=== PATIENT | male | born 1945 | race Caucasian/White ===

== ENCOUNTER → 2017-06-15 | Outpatient (CLI) | payer MEDICARE, OTHER ==
[~2017-06-15] MED LIST: LIDOCAINE 1% MDV 20ML VIAL As Ordered ONE
--- NOTE | 2017-06-15 15:46 | REP ---
LEFT BREAST MAMMOGRAM AND ULTRASOUND: Left breast mammogram performed in the MLO and CC projections. There is a clinical history of a retroareolar mass. Mammography shows a spiculated retroareolar mass containing multiple microcalcifications consistent with cancer. Metallic clip is seen in the mass, status post ultrasound guided biopsy. Real-time sonographic evaluation of the left breast was performed prior to the biopsy. There is a solid irregular mass containing microcalcifications in the left retroareolar region measuring 3.7 x 2.1 x 2.7 cm. IMPRESSION: ACR 5 left breast mammogram and ultrasound. Both mammographically and sonographically there is an irregular spiculated solid mass containing microcalcifications, consistent with cancer. Metallic clip is seen in the mass by mammography, status post ultrasound guided biopsy. This mammogram was interpreted with the aid of an FDA-approved computer-aided detection system. The patient states she/he had a clinical breast exam in 06/2017. Signed by Bogdan Winters MD 06/15/2017 05:02 P
--- NOTE | 2017-06-18 18:00 | REP ---
ULTRASOUND-GUIDED LEFT BREAST BIOPSY The procedure was performed under the direct supervision of Dr. Winters. The patient has a history of a solid irregular mass containing microcalcifications in the left retroareolar region measuring 3.7 x 2.1 x 2.7 cm seen on a previous ultrasound performed earlier today. The risks and benefits of the procedure were explained to the patient and informed consent was obtained. The left breast mass was localized using ultrasound guidance. The skin was prepped and draped in a sterile fashion. 1% Xylocaine was used as a local anesthetic. Using ultrasound guidance and 13-gauge suction assisted Mammotome needle was inserted and six core biopsy samples were obtained. A marker clip was placed at the biopsy site. The patient tolerated the procedure well and there were no immediate complications. After the appropriate amount of monitored convalescence the patient was discharged from the department. Reviewed by LEWIS Flores 06/15/2017 04:59 PSigned by Bogdan Winters MD 06/18/2017 05:50 P
== END ==
LOC: M RADPRO 12:03
PROVIDERS: ATTEND Surgery
DX: C50.922 Malignant neoplasm of unspecified site of left male breast (principal); N63.42 Unspecified lump in left breast, subareolar; Z95.1 Presence of aortocoronary bypass graft; Z87.891 Personal history of nicotine dependence; Z79.82 Long term (current) use of aspirin; Z79.899 Other long term (current) drug therapy
CPT/HCPCS: 19083; 76642; 88305; G0206

== ENCOUNTER → 2017-08-08 | Outpatient (REF) | payer MEDICARE, OTHER ==
[2017-08-08 14:11] LABS: INR 1.07; PARTIAL THROMBOPLASTIN TIME 24.6 SECONDS (26.8-37.9)
== END ==
LOC: M LAB REF 13:39
DX: C50.122 Malignant neoplasm of central portion of left male breast (principal); R79.1 Abnormal coagulation profile
CPT/HCPCS: 85610

== ENCOUNTER → 2017-08-14 | Outpatient (CLI) | payer MEDICARE, OTHER | LOC: M PLARAD 11:33 | DX: C79.51 Secondary malignant neoplasm of bone (principal); C50.122 Malignant neoplasm of central portion of left male breast; Z90.12 Acquired absence of left breast and nipple | CPT/HCPCS: 78815 ==

== ENCOUNTER → 2017-08-29 | Outpatient (CLI) | payer MEDICARE, OTHER ==
[~2017-08-29] MED LIST changes: +LIDOCAINE 1% MDV 20ML VIAL As Ordered; -LIDOCAINE 1% MDV 20ML VIAL As Ordered ONE; +LIDOCAINE 2% MDV 20 ML VIAL As Ordered
== END ==
LOC: M RADPRO 09:42
DX: C77.0 Secondary and unspecified malignant neoplasm of lymph nodes of head, face and neck (principal); C50.929 Malignant neoplasm of unspecified site of unspecified male breast; Z86.79 Personal history of other diseases of the circulatory system; Z79.82 Long term (current) use of aspirin; Z79.899 Other long term (current) drug therapy
CPT/HCPCS: 38505

== ENCOUNTER → 2018-01-08 | Outpatient (CLI) | payer MEDICARE, OTHER | LOC: M PLARAD 14:02 | DX: C50.122 Malignant neoplasm of central portion of left male breast (principal); C79.51 Secondary malignant neoplasm of bone | CPT/HCPCS: 78815 ==

== ENCOUNTER → 2019-02-03 | Outpatient (CLI) | payer MEDICARE, OTHER ==
[~2019-02-03] MED LIST changes: +ACAR25TA2 PO; +AMLO5TAB6 PO; +ANOR1AER PO; +ASPI81TA24 PO; +ATEN50TA2 PO; +ATOR40TA75 PO; +CALC1TAB26 PO; +FOLI1TAB11 PO; +FURO40TA2 PO; +GLIP1TAB11 PO; +GLUC1CAP10 PO; -LIDOCAINE 1% MDV 20ML VIAL As Ordered; +LIDOCAINE 1% MDV 20ML VIAL As Ordered ONE; -LIDOCAINE 2% MDV 20 ML VIAL As Ordered; +LORA-753 PO; +LOVE0.8I3 SC; +MAGN400C2 PO; +MULTCAP PO; +NITR0.1S TL; +NITR0.4S14 SL; +OLME20TA2 PO; +OMEP1CAP77 PO; +RANO500T7 PO; +SITA50TAB PO; +TAMO20TA8 PO; +TRIC145T22 PO; +ULTR0.0510 TOP; +VANI1CRE5 EX; +VENTAER INH; +VITMTA PO; +WARF-58 PO; +XARE20TA PO; +XGEVINJ SC; +[UNRECOGNIZED DRUG - CODE] EX
[2019-02-03 15:16] LABS: BASO % 0.1 % (0.0-1.0); EOS # 0.2 10^3/uL (0.0-0.50); EOS % 2.1 % (0.0-3.0); HEMATOCRIT 36.4 % (42.0-52.0); HEMOGLOBIN 11.2 g/dl (13.5-17.5); LYMPH # 0.6 10^3/uL (1.5-4.5); LYMPH % 7.7 % (24.0-44.0); MEAN CORPUSCULAR HEMOGLOBIN 28.9 pg (27.0-33.0); MEAN CORPUSCULAR HGB CONC 30.8 g/dl (32.0-36.5); MEAN CORPUSCULAR VOLUME 93.8 fl (80.0-96.0); MONO # 0.5 10^3/uL (0.0-0.8); MONO % 6.9 % (0.0-5.0); NEUTROPHILS # 5.9 10^3/uL (1.8-7.7); NEUTROPHILS % 82.5 % (36.0-66.0); PLATELET COUNT, AUTOMATED 232 10^3/uL (150-450); RED BLOOD COUNT 3.88 10^6/uL (4.30-6.10); WHITE BLOOD COUNT 7.1 10^3/uL (4.0-10.0)
[2019-02-03 15:22] LABS: INR 1.76; PROTHROMBIN TIME 20.2 SECONDS (11.8-14.0)
[2019-02-03 15:39] LABS: ALBUMIN 2.8 GM/DL (3.2-5.2); BILIRUBIN,TOTAL 3.4 MG/DL (0.2-1.0); CALCIUM LEVEL 8.5 MG/DL (8.8-10.2); CREATININE FOR GFR 2.32 MG/DL (0.70-1.30); GLOMERULAR FILTRATION RATE 29.6 (>42); POTASSIUM SERUM 4.3 MEQ/L (3.5-5.1); TOTAL PROTEIN 6.5 GM/DL (6.4-8.2)
[2019-02-03 18:11] VITALS: BP 127/61
--- NOTE | 2019-02-03 18:58 | REP ---
ULTRASOUND LEFT NECK SOFT-TISSUES: Real-time sonographic evaluation of the left neck soft tissues are performed to evaluate a palpable lump for a possible ultrasound guided biopsy. There are multiple small hypoechoic lymph nodes in this region. The largest measures 11 x 7 x 7 mm. Ultrasound guided biopsy will subsequently be performed. Electronically Signed by Bogdan Winters MD 02/05/2019 08:01 A
--- NOTE | 2019-02-04 20:11 | REP ---
Ultrasound-guided left neck lymph node biopsy This procedure was performed by LEWIS Pierce, under the personal supervision of Dr. Winters. The patient has a history of a palpable abnormality. On an ultrasound done 02/03/2019 a lymph node measuring 11 x 7 mm was visualized in the area the patient palpated. The risks and the benefits of the procedure were explained to the patient and informed consent was obtained both verbally and written. Directly prior to the start of the procedure, a formal time out was completed in the procedure room. The left neck palpable lymph node was localized using ultrasound guidance. The skin was prepped and draped in a sterile fashion. 5 ml of 1% lidocaine was used as a local anesthetic. Using ultrasound guidance 8 fine-needle aspirations were obtained using 25 gauge needles of the left sided lymph node, and sent to the lab for further analysis. The patient tolerated the procedure well and there were no immediate complications. After the appropriate amount of monitored convalescence the patient was discharged from the department. Reviewed by LEWIS Pierce 02/03/2019 04:20 P Electronically Signed by Bogdan Winters MD 02/04/2019 08:02 P
== END ==
LOC: M RAD 13:25
PROVIDERS: ATTEND Internal Medicine Hematology & Oncology
DX: C77.0 Secondary and unspecified malignant neoplasm of lymph nodes of head, face and neck (principal)

== ENCOUNTER 2019-03-03 16:18 | Inpatient (IN) | payer MEDICARE, OTHER ==
[~2019-03-03] VITALS: Ht 180.3 cm; Wt 102.3 kg
[~2019-03-03 16:18] MED LIST changes: -LIDOCAINE 1% MDV 20ML VIAL As Ordered ONE
[2019-03-03 17:01] VITALS: BP 131/68
[2019-03-03] MEDS ORDERED: GLUCOSE 4 GM CHEW TABLET PO PRN (18:30)
[2019-03-03] MEDS ORDERED: DEXTROSE 50% 50 ML SYRINGE IV PRN (18:30)
[2019-03-03] MEDS ORDERED: GLUCAGON FOR INJ 1 MG VIAL (J1610) SC PRN (18:30)
[2019-03-03] MEDS ORDERED: XARE15TA PO (18:53)
[2019-03-03] MEDS ORDERED: OMEP-218 PO (18:53)
[2019-03-03] MEDS ORDERED: PROT40IN4 IV (18:53)
[2019-03-03] MEDS ORDERED: JANU100T PO (18:53)
[2019-03-03] MEDS ORDERED: CEFT1INJ5 IV (18:53)
[2019-03-03] MEDS ORDERED: GLUCTAB6 PO (18:53)
[2019-03-03] MEDS ORDERED: OXYC1TAB23 PO (18:55)
[2019-03-03] MEDS: ACETAMINOPHEN TAB 650MG DOSE (2X325MG) PO PRN (20:13)
[2019-03-03] MEDS: HumaLOG INSULIN (NovoLOG) PER UNIT SC SCH (21:00)
--- NOTE | 2019-03-03 21:11 | HPEPDOC ---
General Date of Admission Mar 03, 2019 at 17:42 Date of Service: Mar 03, 2019 Chief Complaint The patient is a 74-year-old male admitted with a reason for visit of Acute Cholecystitis. Source: Patient, Old records Exam Limitations: No limitations Timing/Duration: Week(s) Severity: Moderate Associated Symptoms: Fever, Vomiting, Other (abdominal pain) History of Present Illness This is a 74-year-old male who actually had onset 4 weeks ago of right-sided abdominal pain. At that time. He did undergo evaluation at an outlying facility and was told that he did have gallstones. Reportedly, arrangements were made for him to have a follow-up HIDA scan. Then today he developed nausea, vomiting and severe abdominal pain. He also had fever today. He denies any changes to his bowel or bladder habits. His appetite apparently has been good; there isn't a particular food that exacerbates his symptoms. Home Medications Scheduled Acarbose (Acarbose) 25 Mg Tab, 25 MG PO BIDWM, (Reported) Amlodipine Besylate (Amlodipine Besylate) 5 Mg Tab, 5 MG PO QHS, (Reported) Aspirin (Aspirin EC) 81 Mg Tab, 81 MG PO DAILY, (Reported) Atenolol (Atenolol) 50 Mg Tab, 50 MG PO QHS, (Reported) Atorvastatin Calcium (Atorvastatin Calcium) 40 Mg Tab, 40 MG PO QHS, (Reported) Calcium Carbonate/Vitamin D3 (Calcium 600-Vit D3 800 Tablet) 1 Tab Tab, 1 TAB PO DAILY, (Reported) Ceftriaxone Sodium (Ceftriaxone) 1 Gm Vial, 1 GM IV ASDIRECTED, (Reported) RECEIVED AT [facility] Denosumab Injection (Xgeva) 120 Mg/1.7 Ml Inj, 120 MG SC QMONTH, (Reported) Fenofibrate Nanocrystallized (Tricor) 145 Mg Tab, 145 MG PO QHS, (Reported) Folic Acid (Folic Acid) 1 Mg Tab, 1 MG PO QPM, (Reported) Glipizide (Glipizide Xl) 10 Mg Tab, 10 MG PO QAM, (Reported) Gluc Martinez/Chondro Martinez A/Vit C/Mn (Glucosamine Chondroitin Tab) 1 Each Tablet, 1 TAB PO DAILY, (Reported) Loratadine (Allergy Relief) 10 Mg Tab, 10 MG PO QPM, (Reported) Magnesium Oxide (Magnesium) 400 Mg Cap, 400 MG PO QPM, (Reported) Multivitamins (Thera M Plus Tablet) 1 Tab Tab, 1 TAB PO DAILY, (Reported) Omeprazole (Omeprazole) 20 Mg Capsule.dr, 20 MG PO QAM, (Reported) Pantoprazole Sodium (Protonix IV) 40 Mg Vial, 40 MG IV ASDIRECTED, (Reported) RECEIVED AT [facility] Rivaroxaban (Xarelto) 15 Mg Tablet, 15 MG PO QPM, (Reported) PATIENT STATES HE IS TAKING 15MG Sitagliptin Phosphate (Januvia) 100 Mg Tablet, 100 MG PO DAILY, (Reported) Tamoxifen Citrate (Tamoxifen Citrate) 20 Mg Tab, 20 MG PO DAILY Umeclidinium Brm/Vilanterol Tr (Anoro Ellipta 62.5-25 Mcg INH) 1 Aer Aer, 1 PUFF PO QAM, (Reported) Scheduled PRN Albuterol Sulfate (Ventolin Hfa) 18 Gm Hfa.aer.ad, 2 PUFF INH Q6H PRN for SHORTNESS OF BREATH, (Reported) Nitroglycerin (Nitroglycerin) 0.4 Mg Sub, 0.4 MG SL NITRO PRN for CHEST PAIN, (Reported) Oxycodone HCl/Acetaminophen (Oxycodone-Acetaminophen 5-325) 1 Each Tablet, 1 TAB PO Q8H PRN for PAIN, (Reported) Allergies Coded Allergies: No Known Allergies (Unverified , 04/19/18) Past Medical History Medical History Patient has a history of stage IV left breast carcinoma, bladder cancer, essential hypertension, [id number] diabetes mellitus, gastroesophageal reflux disease, chronic anemia, COPD, dyslipidemia, recent history of left lower extremity DVT for which he is on chronic anticoagulation, varicose veins, hearing loss. 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 Physical Examination General Exam: Positive: Alert, Mild Distress Eye Exam: Positive: PERRLA, Conjunctiva & lids normal, EOMI; Negative: Sclera icteric, Ptosis, Other Eye Symptoms ENT Exam: Positive: Atraumatic, Mucous membr. moist/pink, Pharynx Normal Neck Exam: Positive: Supple; Negative: JVD, thyromegaly, +2 carotid pulse wo bruit, Lymphadenopathy, Other Chest Exam: Positive: Clear to auscultation, Normal air movement Heart Exam: Positive: Rate Normal Abdomen Exam: Positive: Normal bowel sounds, Tenderness Extremity Exam: Positive: Normal pulses, Other (notable varicose veins that are nontender) Skin Exam: Positive: Nl turgor and temperature, Other skin issue (no jaundice) Neuro Exam: Positive: Normal Speech, Strength at 5/5 X4 ext, Normal Tone, Cranial Nerves 3-12 NL Psych Exam: Positive: Memory Intact, Oriented x 3 Vital Signs Vital Signs Date Time Temp Pulse Resp B/P (MAP) Pulse Ox O2 Delivery O2 Flow Rate FiO2 03/03/19 17:01 99.4 78 18 131/68 (89) 92 Assessment/Plan 1. Cholecystitis. Ultrasound from outlying facility shows cholelithiasis with associated edema and gallbladder wall thickness. There does not appear to be any choledocholithiasis. Surgery service has been consulted. The patient has been made nothing by mouth after midnight in anticipation of surgery sometime tomorrow. He does not require significant analgesia at the moment, but we'll make sure he has antiemetics available. Case has been discussed with surgery service and he has been placed on empiric antibiotics. He did have a mild leukocytosis of 12.4. The Levaquin is 1.7; otherwise liver enzyme studies are normal. 2. Nhb-prrqaoj-veyizkaqh diabetes mellitus. Patient has been placed on sliding scale insulin for acute glucose management. #3. Left lower extremity DVT. Patient has been on anticoagulation with Xarelto. This can be held for surgery as needed. Plan / VTE VTE Prophylaxis Ordered?: Yes (patient is on Xarelto) VTE Exclusion Mechanical Proph: N/A:VTE Prophy Ordered VTE Exclusion Pharmacological: N/A:VTE Prophy Ordered Plan IVF: Initiate Diet: Make NPO Medications: Start Antibiotics Diagnostics: Repeat Labs in AM Anticipated Discharge: Home MONICA KIMBALL MD Mar 03, 2019 21:11
[2019-03-03] MEDS ORDERED: ONDANSETRON 4MG/2ML VIAL (J2405) IV PRN (21:15)
[2019-03-03] MEDS: PIPERACILLIN/TAZOBACTAM SOD 3.375 GM in D5W MINI-BAG PLUS 50 ML IV SCH (21:37)
[2019-03-03 22:30] VITALS: BP 126/63
[2019-03-03 22:33] VITALS: BP 126/63
[2019-03-03] MEDS ORDERED: NS 1,000 ML IV ONE (22:45)
[2019-03-03 22:48] VITALS: BP 136/65
[2019-03-03] MEDS ORDERED: ACETAMINOPHEN 650 MG SUPP PR PRN (23:00)
[2019-03-03 23:05] VITALS: BP 127/65
[2019-03-03 23:11] LABS: BASO % 0.1 % (0.0-1.0); EOS % 0.4 % (0.0-3.0); HEMATOCRIT 37.5 % (42.0-52.0); LYMPH # 0.8 10^3/uL (1.5-5.0); LYMPH % 10.2 % (24.0-44.0); MEAN CORPUSCULAR HEMOGLOBIN 29.7 pg (27.0-33.0); MEAN CORPUSCULAR VOLUME 92.8 fl (80.0-96.0); MONO # 0.6 10^3/uL (0.0-0.8); MONO % 7.6 % (0.0-5.0); NEUTROPHILS # 6.6 10^3/uL (1.5-8.5); NEUTROPHILS % 81.1 % (36.0-66.0); PLATELET COUNT, AUTOMATED 203 10^3/uL (150-450); RED BLOOD COUNT 4.04 10^6/uL (4.30-6.10); WHITE BLOOD COUNT 8.1 10^3/uL (4.0-10.0)
[2019-03-03 23:35] VITALS: BP 123/80
[2019-03-03 23:37] LABS: ALBUMIN 2.8 GM/DL (3.2-5.2); BILIRUBIN,TOTAL 2.7 MG/DL (0.2-1.0); CALCIUM LEVEL 8.5 MG/DL (8.8-10.2); CREATININE FOR GFR 1.93 MG/DL (0.70-1.30); GLOMERULAR FILTRATION RATE 36.6 (>42); POTASSIUM SERUM 4.4 MEQ/L (3.5-5.1); TOTAL PROTEIN 6.9 GM/DL (6.4-8.2)
[2019-03-04] VITALS (12 sets, daily range): BP systolic 112–140; BP diastolic 56–71; O2SAT 96
[2019-03-04] MEDS: NS 1,000 ML IV SCH ×2 (00:01→08:16)
[2019-03-04] MEDS: PIPERACILLIN/TAZOBACTAM SOD 3.375 GM in D5W MINI-BAG PLUS 50 ML IV SCH ×4 (03:21→21:04)
[2019-03-04] MEDS ORDERED: ALBUTEROL 90 MCG/ACT 8GM HFA INHALER INH PRN (06:00)
[2019-03-04 06:58] LABS: HEMATOCRIT 36.9 % (42.0-52.0); HEMOGLOBIN 11.5 g/dl (13.5-17.5); MEAN CORPUSCULAR HEMOGLOBIN 28.9 pg (27.0-33.0); MEAN CORPUSCULAR HGB CONC 31.2 g/dl (32.0-36.5); MEAN CORPUSCULAR VOLUME 92.7 fl (80.0-96.0); PLATELET COUNT, AUTOMATED 184 10^3/uL (150-450); RED BLOOD COUNT 3.98 10^6/uL (4.30-6.10)
[2019-03-04 07:27] LABS: ALBUMIN 2.5 GM/DL (3.2-5.2); BILIRUBIN,TOTAL 2.8 MG/DL (0.2-1.0); CALCIUM LEVEL 8.5 MG/DL (8.8-10.2); CREATININE FOR GFR 1.71 MG/DL (0.70-1.30); GLOMERULAR FILTRATION RATE 42.1 (>42); POTASSIUM SERUM 4.7 MEQ/L (3.5-5.1); TOTAL PROTEIN 6.7 GM/DL (6.4-8.2)
[2019-03-04] MEDS: HumaLOG INSULIN (NovoLOG) PER UNIT SC SCH ×4 (07:30→21:00)
[2019-03-04] MEDS: TIOTROPIUM INHALER/CAPSULE (SPIRIVA) INH SCH (08:16)
[2019-03-04] MEDS: FORMOTEROL FUMARATE 20 MCG/2 ML INHALATION SOLUTION (PERFOROMIST) INH SCH (08:41)
[2019-03-04] MEDS: SYMBICORT 160/4.5MCG INHALER 6GM INH SCH ×2 (09:00→20:08)
[2019-03-04] MEDS ORDERED: ENTER DRUG NAME HERE (PATIENT'S OWN MED) INH SCH (09:00)
[2019-03-04] MEDS: ASPIRIN 81 MG ENTERIC TAB PO SCH (10:01)
--- NOTE | 2019-03-04 14:26 | REP ---
MRCP: MRCP exam is accomplished utilizing multiple heavily T2-weighted sequences in the axial and coronal planes. 3D MIP reconstruction images are performed. The gallbladder is moderately distended and the wall appears mild to moderately thickened. Multiple subcentimeter gallstones are seen in the dependent portion of the gallbladder. There are two filling defects in the proximal cystic duct measuring 2 to 3 mm in diameter compatible with small stones in the proximal cystic duct. There is another filling defect in the distal common bile duct approximately 2 mm in diameter consistent with a small stone in the distal CBD. The common bile duct is not significantly dilated, maximum diameter is 6 mm. There is no pancreatic duct dilatation. There is no significant intrahepatic biliary dilatation. There is mild scattered periportal edema. Very small amount of perihepatic fluid is present. Incidental note is made of small cysts in each kidney. IMPRESSION: Moderately distended gallbladder with diffuse gallbladder wall thickening. Multiple subcentimeter gallstones in the gallbladder. There are two stones seen in the proximal cystic duct measuring 2 to 3 mm in diameter. There is a small stone in the distal common bile duct 2 mm in diameter. There is not significant biliary dilatation. There is a very mild amount of perihepatic fluid. The findings suggest cholecystitis. Electronically Signed by Bogdan Winters MD 03/04/2019 04:57 P
[2019-03-04] MEDS: D5W/0.45% SODIUM CHLORIDE 1,000 ML IV SCH (14:51)
[2019-03-04] MEDS: ACETAMINOPHEN TAB 650MG DOSE (2X325MG) PO PRN ×2 (16:00→22:05)
--- NOTE | 2019-03-04 17:59 | IPNPDOC ---
Text Note Date of Service The patient was seen on 03/04/19. NOTE Mr. Solano is a 74-year-old male admitted with cholecystitis. His right-sided abdominal pain is decreasing but he is still rather uncomfortable. Objective: Patient had a MAXIMUM TEMPERATURE of 101.3, but appears to have defervesced; please see vital signs below Physical exam: HENT: Neck is supple with no adenopathy or thyromegaly, he does not currently exhibit diaphoresis. Cardiovascular: Regular rate and rhythm with a normal S1 and S2, no appreciable murmur. Respiratory: Clear to auscultation. Abdominal: Slight distention, moderately tender but no guarding or rebound, b owel tones are decreased. Extremities: No peripheral edema or lesions. Neuro: No focal neuromotor or sensory deficits ASSESSMENT/PLAN: 1. Cholecystitis. Ultrasound from outlying facility showed cholelithiasis with associated edema and gallbladder wall thickness. Concern had been raised for choledocholithiasis as the patient's bilirubin has increased to 2.8. Case has been discussed with the surgery service and MRCP was obtained. Filling defect is noted to the proximal cystic duct and distal common bile duct without significant dilatation. There is no pancreatic duct dilatation or intrahepatic biliary dilatation. The patient does not need intra-operative ERCP he will proceed with cholecystectomy; this is to be determined by the surgery service whose assistance we appreciate. #2. Chronic kidney disease. The patient does have a history of such. He is followed by a ticket sales agent. Crea tinine is much improved at 1.7 with hydration. 3. Kqa-ojojxym-jzvxskrpk diabetes mellitus. Patient did develop some mild hypoglycemia with holding of his diet for procedures. We have transitioned his IV fluids to include dextrose. VS,Fishbone, I+O VS, Fishbone, I+O Laboratory Tests 03/03/19 22:52 Red Blood Count 4.04 L, Mean Corpuscular Volume 92.8, Mean Corpuscular Hemoglobin 29.7, Mean Corpuscular Hemoglobin Concent 32.0, Red Cell Distribution Width 16.1 H, Neutrophils (%) (Auto) 81.1 H, Lymphocytes (%) (Auto) 10.2 L, Monocytes (%) (Auto) 7.6 H, Eosinophils (%) (Auto) 0.4, Basophils (%) (Auto) 0.1, Neutrophils # (Auto) 6.6, Lymphocytes # (Auto) 0.8 L, Monocytes # (Auto) 0.6, Eosinophils # (Auto) 0.0, Basophils # (Auto) 0.0 03/03/19 23:00 Calcium Level 8.5 L, Aspartate Amino Transf (AST/SGOT) 94 H, Alanine Aminotransferase (ALT/SGPT) 44, Alkaline Phosphatase 48, Total Bilirubin 2.7 H, Total Protein 6.9, Albumin 2.8 L 03/04/19 06:45 Red Blood Count 3.98 L, Mean Corpuscular Volume 92.7, Mean Corpuscular Hemoglobin 28.9, Mean Corpuscular Hemoglobin Concent 31.2 L, Red Cell Distribution Width 16.0 H, Calcium Level 8.5 L, Aspartate Amino Transf (AST/SGOT) 102 H, Alanine Aminotransferase (ALT/SGPT) 50, Alkaline Phosphatase 47, Total Bilirubin 2.8 H, Total Protein 6.7, Albumin 2.5 L Vital Signs Date Time Temp Pulse Resp B/P (MAP) Pulse Ox O2 Delivery O2 Flow Rate FiO2 03/04/19 15:00 2.0 03/04/19 14:00 98.8 76 18 120/56 (77) 96 03/04/19 06:18 Nasal Cannula I&O- Last 24 Hours up to 6 AM 03/04/19 06:00 Intake Total 1999.5 ml Output Total 400 ml Balance 1599.5 ml MONICA KIMBALL MD Mar 04, 2019 17:59
[2019-03-04] MEDS: TAMOXIFEN CITRATE 10 MG TAB PO SCH (18:03)
[2019-03-04] MEDS: FOLIC ACID 1 MG TAB PO SCH (18:03)
[2019-03-04] MEDS: MAGNESIUM OXIDE 400 MG TAB (MAG-OX) PO SCH (18:04)
[2019-03-04] MEDS: FENOFIBRATE 145 MG TAB (TRICOR) PO SCH (21:04)
[2019-03-04] MEDS: amLODIPine 5 MG TAB PO SCH (21:09)
[2019-03-04] MEDS: ATORVASTATIN 20 MG TAB PO SCH (21:09)
[2019-03-04] MEDS: ATENOLOL 50 MG TAB PO SCH (21:09)
[2019-03-05] MEDS: D5W/0.45% SODIUM CHLORIDE 1,000 ML IV SCH ×3 (03:23→21:59)
[2019-03-05] MEDS: PIPERACILLIN/TAZOBACTAM SOD 3.375 GM in D5W MINI-BAG PLUS 50 ML IV SCH ×4 (03:23→21:58)
--- NOTE | 2019-03-05 04:30 | CR.PDOC ---
General Surgery Consultation Date of Consultation 03/04/19 History and Physical CONSULT REPORT FOR: Dr. Herrera (hospitalist service) REASON FOR CONSULTATION: abdominal pain, gallstones HISTORY OF PRESENT ILLNESS: Patient admitted to hospitalist service assisted transfer after presentation at [facility] for acute onset of abd ominal pain, reports a low-grade fever and nausea and vomiting. Apparently had a biliary colic type attacks with right upper quadrant and epigastric discomfort about 4 weeks ago was seen at [facility] was found to have evidence of cholelithiasis on ultrasound subsequently discharged home. He was scheduled to have a HIDA scan for some reason to further evaluate his pain. He has not been evaluated by a surgeon. Yesterday he presented to the [facility] with acute onset of pain. Evaluation there with a CT scan of the abdomen and pelvis now shows gallbladder wall thickening and suspicion for acute cholecystitis in this patient is subsequently transferred to us under the care of the hospitalists. I was asked to consult on the patient with regards to surgical management of the cholecystitis. Review of the laboratory studies done there shows that his bilirubin was elevated to 1.7. A repeat here last night shows that this is gone up. At the time I saw the patient, patient reports improvement of the discomfort though this is not totally resolved yet. He denies any nausea or vomiting. PAST MEDICAL HISTORY: Patient has a history of stage IV left breast carcinoma, bladder cancer, essential hypertension, vnx-uyrwjen-cxumwelaz diabetes mellitus, gastroesophageal reflux disease, chronic anemia, COPD, dyslipidemia, recent history of left lower extremity DVT for which he is on chronic anticoagulation, varicose veins, hearing loss. PAST SURGICAL HISTORY: INCLUDES: [Surgical history includes coronary artery bypass graft surgery, right hip surgery for a slipped epiphysis, appendectomy, tonsillectomy, and then left mastectomy in July 2017]. ALLERGIES: Please see below. HOME MEDICATIONS: Please see below. REVIEW OF SYSTEMS: GENERAL: Patient denies fevers or chills. He reports intermittent pain since initial presentation 30 days ago with a severe attack yesterday. Baseline reports easily feeling short of breath. HEENT: [Denies blurred vision and double vision. Denies ear symptoms. Denies hoarseness]. NECK: Denies any neck pain CARDIOVASCULAR: [Denies chest pain and palpitations]. MUSCULOSKELETAL: [Complains of low back pain]. SKIN: [Denies rash]. Denies jaundice NEUROLOGIC: [Denies headache, stroke and transient ischemic attack]. PSYCHIATRIC: [Denies anxiety and depression]. ENDOCRINE: [Denies thyroid disease]. HEMATOLOGY/ONCOLOGY: [Denies bleeding or clotting disorder]. Patient on Eliquis for history of DVT. Reports less intake was yesterday. HEART: [Denies any chest pains, palpitations, paroxysmal dyspnea, orthopnea]. PULMONARY: Reports easily short of breath. 9 oxygen dependent. GASTROINTESTINAL: See HPI. GENITOURINARY: [Denies dysuria, frequency, hematuria and nocturia]. ENDOCRINE: Patient reports being diabetic, on oral hypoglycemic. INFECTIOUS: [Denies any recent upper respiratory tract infection, UTI, need for use of antibiotics]. NUTRITION: Reports fair to poor appetite. PHYSICAL EXAMINATION: VITALS SIGNS: Please see below. GENERAL APPEARANCE: Patient seen laying flat on bed, mildly uncomfortable though this seems to be more from breathing and back pain and then the abdominal discomfort. SKIN: Warm and dry, no signs of jaundice. HEENT: Normocephalic, dry lips. NECK: [Supple, no thyromegaly. No obvious jugular venous distention]. LUNGS: [Clear to auscultation bilaterally. No wheezing appreciated]. HEART: [No chest wall abnormalities. Regular rate and rhythm with no murmurs appreciated]. ABDOMEN: Abdomen is obese, soft, and mildly distended. Right lower quadrant incision from previous appendectomy. He seems to be tender over the right lower quadrant area, mildly tender over the right upper quadrant area and minimally tender in the epigastric area. He is nontender on the left side of the abdomen. EXTREMITIES: [Extremities have no deformities. No edema identified] ANCILLARIES: . LABORATORY DATA: Please see below. IMAGING STUDIES: CT scan of the abdomen and pelvis. I reviewed the images. The official report is not available. This shows gallbladder wall thickening with diffuse small stones in the dependent portion of the neck the gallbladder. I think it could make up either stone in the cystic duct or common bile duct out of the gallbladder. IMPRESSION AND PLAN: Cholelithiasis with acute cholecystitis. Increased LFTs Metastatic lung cancer COPD Patient has evidence of right upper quadrant pain go away could not understand that is the prominence of the right lower quadrant pain on examination. He does have leukocytosis and evidence for gallbladder wall thickening to suggest acute cholecystitis. Concern is for possibility of choledocholithiasis with rising liver function test most specifically the bilirubin with a primary direct bilirubin as a portion that is increasing. Continue with IV antibiotics. I have asked for an MRCP to further evaluate the bile ducts for presence of the colon bile duct stones. I've explained to the patient that if there is common bile duct stones he may need a separate procedure which is an ERCP to remove the stones that fell from the gallbladder. We'll closely follow the patient and [facility] care with hospitalist service. Continue to hold off on the ant icoagulation while we are determining intervention that the surgical may need and timing of it. Vital Signs Vital Signs Date Time Temp Pulse Resp B/P (MAP) Pulse Ox O2 Delivery O2 Flow Rate FiO2 03/04/19 06:00 97.5 64 20 112/63 (79) 95 1.0 I&Os I&O- Last 24 Hours up to 6 AM 03/04/19 06:00 Intake Total 1350 ml Output Total 400 ml Balance 950 ml Laboratory Data Labs 24H Laboratory Tests 2 03/03/19 22:52: Immature Granulocyte % (Auto) 0.6, White Blood Count 8.1, Red Blood Count 4.04L, Hemoglobin 12.0L, Hematocrit 37.5L, Mean Corpuscular Volume 92.8, Mean Corpuscular Hemoglobin 29.7, Mean Corpuscular Hemoglobin Concent 32.0, Red Cell Distribution Width 16.1H, Platelet Count 203, Neutrophils (%) (Auto) 81.1H, Lymphocytes (%) (Auto) 10.2L, Monocytes (%) (Auto) 7.6H, Eosinophils (%) (Auto) 0.4, Basophils (%) (Auto) 0.1, Neutrophils # (Auto) 6.6, Lymphocytes # (Auto) 0.8L, Monocytes # (Auto) 0.6, Eosinophils # (Auto) 0.0, Basophils # (Auto) 0.0, Nucleated Red Blood Cells % (auto) 0.0 03/03/19 23:00: Anion Gap 7L, Glomerular Filtration Rate 36.6L, Lactic Acid Level 3.6*H, Blood Urea Nitrogen 30H, Creatinine 1.93H, Sodium Level 136, Potassium Level 4.4, Chloride Level 108H, Carbon Dioxide Level 21, Calcium Level 8.5L, Aspartate Amino Transf (AST/SGOT) 94H, Alanine Aminotransferase (ALT/SGPT) 44, Alkaline Phosphatase 48, Total Bilirubin 2.7H, Total Protein 6.9, Albumin 2.8L, Albumin/Globulin Ratio 0.68L 03/04/19 03:27: Lactic Acid Followup at 4 Hours 1.9 CBC/BMP Laboratory Tests 03/03/19 22:52 Red Blood Count 4.04 L, Mean Corpuscular Volume 92.8, Mean Corpuscular Hemoglobin 29.7, Mean Corpuscular Hemoglobin Concent 32.0, Red Cell Distribution Width 16.1 H, Neutrophils (%) (Auto) 81.1 H, Lymphocytes (%) (Auto) 10.2 L, Monocytes (%) (Auto) 7.6 H, Eosinophils (%) (Auto) 0.4, Basophils (%) (Auto) 0.1, Neutrophils # (Auto) 6.6, Lymphocytes # (Auto) 0.8 L, Monocytes # (Auto) 0.6, Eosinophils # (Auto) 0.0, Basophils # (Auto) 0.0 03/03/19 23:00 Calcium Level 8.5 L, Aspartate Amino Transf (AST/SGOT) 94 H, Alanine Aminotransferase (ALT/SGPT) 44, Alkaline Phosphatase 48, Total Bilirubin 2.7 H, Total Protein 6.9, Albumin 2.8 L Microbiology Microbiology 03/03/19 Blood Culture, Received Pending 03/03/19 Blood Culture, Received Pending Home Medications Scheduled Acarbose (Acarbose) 25 Mg Tab, 25 MG PO BIDWM, (Reported) Amlodipine Besylate (Amlodipine Besylate) 5 Mg Tab, 5 MG PO QHS, (Reported) Aspirin (Aspirin EC) 81 Mg Tab, 81 MG PO DAILY, (Reported) Atenolol (Atenolol) 50 Mg Tab, 50 MG PO QHS, (Reported) Atorvastatin Calcium (Atorvastatin Calcium) 40 Mg Tab, 40 MG PO QHS, (Reported) Calcium Carbonate/Vitamin D3 (Calcium 600-Vit D3 800 Tablet) 1 Tab Tab, 1 TAB PO DAILY, (Reported) Ceftriaxone Sodium (Ceftriaxone) 1 Gm Vial, 1 GM IV ASDIRECTED, (Reported) RECEIVED AT [facility] Denosumab Injection (Xgeva) 120 Mg/1.7 Ml Inj, 120 MG SC QMONTH, (Reported) Fenofibrate Nanocrystallized (Tricor) 145 Mg Tab, 145 MG PO QHS, (Reported) Folic Acid (Folic Acid) 1 Mg Tab, 1 MG PO QPM, (Reported) Glipizide (Glipizide Xl) 10 Mg Tab, 10 MG PO QAM, (Reported) Gluc Martinez/Chondro Martinez A/Vit C/Mn (Glucosamine Chondroitin Tab) 1 Each Tablet, 1 TAB PO DAILY, (Reported) Loratadine (Allergy Relief) 10 Mg Tab, 10 MG PO QPM, (Reported) Magnesium Oxide (Magnesium) 400 Mg Cap, 400 MG PO QPM, (Reported) Multivitamins (Thera M Plus Tablet) 1 Tab Tab, 1 TAB PO DAILY, (Reported) Omeprazole (Omeprazole) 20 Mg Capsule.dr, 20 MG PO QAM, (Reported) Pantoprazole Sodium (Protonix IV) 40 Mg Vial, 40 MG IV ASDIRECTED, (Reported) RECEIVED AT [facility] Rivaroxaban (Xarelto) 15 Mg Tablet, 15 MG PO QPM, (Reported) PATIENT STATES HE IS TAKING 15MG Sitagliptin Phosphate (Januvia) 100 Mg Tablet, 100 MG PO DAILY, (Reported) Tamoxifen Citrate (Tamoxifen Citrate) 20 Mg Tab, 20 MG PO DAILY Umeclidinium Brm/Vilanterol Tr (Anoro Ellipta 62.5-25 Mcg INH) 1 Aer Aer, 1 PUFF PO QAM, (Reported) Scheduled PRN Albuterol Sulfate (Ventolin Hfa) 18 Gm Hfa.aer.ad, 2 PUFF INH Q6H PRN for SHORTNESS OF BREATH, (Reported) Nitroglycerin (Nitroglycerin) 0.4 Mg Sub, 0.4 MG SL NITRO PRN for CHEST PAIN, (Reported) Oxycodone HCl/Acetaminophen (Oxycodone-Acetaminophen 5-325) 1 Each Tablet, 1 TAB PO Q8H PRN for PAIN, (Reported) Allergies Coded Allergies: No Known Allergies (Unverified , 04/19/18) YARA MAGALLANES MD Mar 04, 2019 06:19
[2019-03-05] MEDS: ACETAMINOPHEN TAB 650MG DOSE (2X325MG) PO PRN ×2 (05:22→16:30)
[2019-03-05 06:00] VITALS: BP 112/57
[2019-03-05 06:56] LABS: ALBUMIN 2.1 GM/DL (3.2-5.2); BILIRUBIN,TOTAL 1.4 MG/DL (0.2-1.0); CALCIUM LEVEL 7.9 MG/DL (8.8-10.2); CREATININE FOR GFR 1.45 MG/DL (0.70-1.30); GLOMERULAR FILTRATION RATE 50.9 (>42); POTASSIUM SERUM 3.9 MEQ/L (3.5-5.1)
[2019-03-05] MEDS: HumaLOG INSULIN (NovoLOG) PER UNIT SC SCH ×4 (07:30→21:00)
[2019-03-05] MEDS: SYMBICORT 160/4.5MCG INHALER 6GM INH SCH ×2 (07:47→20:27)
[2019-03-05] MEDS: TIOTROPIUM INHALER/CAPSULE (SPIRIVA) INH SCH (07:47)
[2019-03-05] MEDS: FORMOTEROL FUMARATE 20 MCG/2 ML INHALATION SOLUTION (PERFOROMIST) INH SCH (07:47)
--- NOTE | 2019-03-05 08:32 | IPNPDOC ---
Subjective General Date/Time Seen The patient was seen on 03/05/19 at 08:31. Subject Chief Complaint/History The patient is a 74-year-old male admitted with a reason for visit of Acute Cholecystitis. Current Medications Current Medications Current Medications Medications (Trade) Dose Ordered Sig/Giovanni Route PRN Reason Start Time Stop Time Status Last Admin Dose Admin Acetaminophen (Tylenol Suppository) 650 mg Q4HP PRN TX PAIN / FEVER 03/03/19 23:00 03/03/19 22:52 Acetaminophen (Tylenol Tab) 650 mg Q6H PRN PO PAIN OR FEVER 03/03/19 18:30 Future hold 03/05/19 05:22 Albuterol Sulfate (Proventil, Ventolin Hfa) 2 puff Q6H PRN INH SHORTNESS OF BREATH 03/04/19 06:00 03/04/19 06:16 Amlodipine Besylate (Norvasc) 5 mg QHS PO 03/04/19 21:00 03/04/19 21:09 Aspirin (Ecotrin) 81 mg DAILY PO 03/04/19 09:00 03/04/19 10:01 Atenolol (Tenormin) 50 mg QHS PO 03/04/19 21:00 03/04/19 21:09 Atorvastatin Calcium (Lipitor) 40 mg QHS PO 03/04/19 21:00 03/04/19 21:09 Budesonide/ Formoterol Fumarate (Symbicort 160/ 4.5mcg) 2 puff BID INH 03/04/19 09:00 03/05/19 07:47 Dextrose (Dextrose 50%) 25 ml ASDIRECTED PRN IV SEE LABEL COMMENTS 03/03/19 18:30 03/04/19 11:56 Dextrose/Sodium Chloride 1,000 ml @ 75 mls/hr [id number] IV 03/04/19 12:30 03/05/19 03:23 Fenofibrate (Tricor) 145 mg QHS PO 03/04/19 21:00 03/04/19 21:04 Folic Acid (Folic Acid) 1 mg DAILY@1800 PO 03/04/19 18:00 03/04/19 18:03 Formoterol Fumarate (Perforomist) 20 mcg DAILY@0800 INH 03/04/19 08:00 03/05/19 07:47 Glucagon (Glucagon) 1 mg ASDIRECTED PRN SC SEE LABEL COMMENTS 03/03/19 18:30 Glucose (Glucose) 16 GM ASDIRECTED PRN PO SEE LABEL COMMENTS 03/03/19 18:30 Home Med (Med Rec Complete!) ASDIRECTED XX 03/03/19 19:00 03/03/19 19:01 DC Insulin Human Lispro (HumaLOG INSULIN) See Protocol Table AC SC 03/04/19 07:30 Insulin Human Lispro (HumaLOG INSULIN) See Protocol Table QHS SC 03/03/19 21:00 Magnesium Oxide (Mag-Ox) 400 mg DAILY@1800 PO 03/04/19 18:00 03/04/19 18:04 Miscellaneous (Unresolved Patient Own Med Order) SEE LABEL COMMENTS DAILY XX 03/04/19 09:00 03/04/19 11:34 DC Ondansetron HCl (ZOFRAN INJection) 4 mg Q6HP PRN IV NAUSEA OR VOMITING 03/03/19 21:15 Patient Own Medication (Patient'S Own Med) ENTER DRUG NAME & DOSE H... QAM INH 03/04/19 09:00 03/04/19 11:21 DC Piperacillin Sod/ Tazobactam Sod 3.375 gm/Dextrose 50 ml @ 50 mls/hr Q6H IV 03/03/19 21:00 03/05/19 03:23 Sodium Chloride 1,000 ml @ 125 mls/hr Q8H IV 03/03/19 21:15 03/04/19 12:43 DC 03/04/19 08:16 Tamoxifen Citrate (Nolvadex) 20 mg DAILY@1800 PO 03/04/19 18:00 03/04/19 18:03 Tiotropium [place] (Spiriva Handihaler) 1 inhalation DAILY@08 INH 03/04/19 08:00 03/05/19 07:47 Allergies Coded Allergies: No Known Allergies (Unverified , 04/19/18) Objective Physical Examination Examination GENERAL APPEARANCE:[Patient seen, laying in bed, awake, alert, and oriented. Comfortable, in no acute distress]. SKIN: [Warm and moist]. HEENT: [Normocephalic, atraumatic. [place] palpebral conjunctiva, anicteric sclerae. Lips and mucosa appear moist]. NECK: [Supple, no thyromegaly. No obvious jugular venous distention]. LUNGS: [Clear to auscultation bilaterally. No wheezing appreciated]. HEART: [No chest wall abnormalities. Regular rate and rhythm with no murmurs appreciated]. ABDOMEN: Abdomen is , soft, . [No hepatosplenomegaly. No umbilical or groin herniations, nondistended. No noticeable rebound or guarding. No grimacing with palpation. No rebound tenderness. No masses appreciated]. EXTREMITIES: [Extremities have no deformities. No edema identified]. Vital Signs Vital Signs Date Time Temp Pulse Resp B/P (MAP) Pulse Ox O2 Delivery O2 Flow Rate FiO2 03/05/19 06:00 97.9 62 22 112/57 (75) 93 03/04/19 17:30 1.0 03/04/19 06:18 Nasal Cannula I&Os I&O- Last 24 Hours up to 6 AM 03/05/19 06:00 Intake Total 3445 ml Output Total 1165 ml Balance 2280 ml Laboratory Data Labs 24H Laboratory Tests 2 03/04/19 12:45: Bedside Glucose (Misc Panel) 105 03/05/19 05:58: Anion Gap 7L, Glomerular Filtration Rate 50.9, Blood Urea Nitrogen 23H, Creatinine 1.45H, Sodium Level 140, Potassium Level 3.9, Chloride Level 111H, Carbon Dioxide Level 22, Calcium Level 7.9L, Aspartate Amino Transf (AST/SGOT) 121H, Alanine Aminotransferase (ALT/SGPT) 58, Alkaline Phosphatase 56, Total Bilirubin 1.4H, Total Protein 6.0L, Albumin 2.1L, Albumin/Globulin Ratio 0.54L CBC/BMP Laboratory Tests 03/05/19 05:58 Calcium Level 7.9 L, Aspartate Amino Transf (AST/SGOT) 121 H, Alanine Aminotr ansferase (ALT/SGPT) 58, Alkaline Phosphatase 56, Total Bilirubin 1.4 H, Total Protein 6.0 L, Albumin 2.1 L Microbiology Microbiology 03/03/19 Blood Culture - Preliminary, Resulted No growth after 24 hours . All specim... 03/03/19 Blood Culture - Preliminary, Resulted No growth after 24 hours . All specim... Impression Cholelithiasis with acute cholecystitis. Increased LFTs secondary to choledocholithiasis improving Metastatic lung cancer COPD Plan / VTE VTE Prophylaxis Ordered?: Yes (patient is on Xarelto) VTE Exclusion Mechanical Proph: N/A:VTE Prophy Ordered VTE Exclusion Pharmacological: N/A:VTE Prophy Ordered YARA MAGALLANES MD Mar 05, 2019 08:32
[2019-03-05 08:33] VITALS: BP 120/60
[2019-03-05] MEDS: ASPIRIN 81 MG ENTERIC TAB PO SCH (09:55)
[2019-03-05 14:00] VITALS: BP_SYST 120; BP_SYST 138; BP_DIAS 54; BP_DIAS 72
--- NOTE | 2019-03-05 17:27 | IPNPDOC ---
Text Note Date of Service The patient was seen on 03/05/19. NOTE Mr. Solano is a 74-year-old male admitted with acute cholecystitis. There are concerns for choledocholithiasis as well. The patient has been uncomfortable with abdominal pain. Objective: See vital signs below Physical exam: HENT: Neck is supple with no adenopathy or thyromegaly, he does not currently exhibit diaphoresis, no scleral icterus or jaundice Cardiovascular: Regular rate and rhythm with a normal S1 and S2, no appreciable murmur. Respiratory: Clear to auscultation. Abdominal: Slight distention, moderately tender primarily to the right side but no guarding or rebound, bowel tones are decreased. Extremities: No peripheral edema or lesions. Neuro: No focal neuromotor or sensory deficits ASSESSMENT/PLAN: 1. Cholecystitis. Patient underwent evaluation by MRCP yesterday. This shows some filling defect in the proximal cystic duct and distal common bile duct, raising concern for choledocholithiasis. Patient is expectant of going to the OR tomorrow for ERCP and subsequent cholecystectomy. The patient admits to having decreased tolerance for his pain and I have made morphine available. 2. Chronic kidney disease Patient has a history of chronic kidney disease. We continue to monitor his creatinine; it is 1.45 today. 3. Lmo-stokilj-zeatafztx diabetes mellitus. The patient is being maintained on sliding scale insulin. He is also on IV fluids containing dextrose. Sugars are ranging 92-119. 4. Cancer. The patient has a history of stage IV breast cancer and bladder cancer. He has undergone surgery and treatment of these. These are not of acute concern during this hospital stay. VS,Fishbone, I+O VS, Fishbone, I+O Laboratory Tests 03/05/19 05:58 Calcium Level 7.9 L, Aspartate Amino Transf (AST/SGOT) 121 H, Alanine Aminotransferase (ALT/SGPT) 58, Alkaline Phosphatase 56, Total Bilirubin 1.4 H, Total Protein 6.0 L, Albumin 2.1 L Vital Signs Date Time Temp Pulse Resp B/P (MAP) Pulse Ox O2 Delivery O2 Flow Rate FiO2 03/05/19 14:00 100.1 90 24 138/72 (94) 95 03/04/19 17:30 1.0 03/04/19 06:18 Nasal Cannula I&O- Last 24 Hours up to 6 AM 03/05/19 06:00 Intake Total 3445 ml Output Total 1165 ml Balance 2280 ml MONICA KIMBALL MD Mar 05, 2019 17:27
[2019-03-05] MEDS: TAMOXIFEN CITRATE 10 MG TAB PO SCH (17:53)
[2019-03-05] MEDS: MAGNESIUM OXIDE 400 MG TAB (MAG-OX) PO SCH (17:53)
[2019-03-05] MEDS: FOLIC ACID 1 MG TAB PO SCH (17:53)
[2019-03-05] MEDS: FENOFIBRATE 145 MG TAB (TRICOR) PO SCH (21:58)
[2019-03-05] MEDS: ATORVASTATIN 20 MG TAB PO SCH (21:59)
[2019-03-05] MEDS: amLODIPine 5 MG TAB PO SCH (21:59)
[2019-03-05] MEDS: ATENOLOL 50 MG TAB PO SCH (21:59)
[2019-03-05 22:00] VITALS: BP 116/59
[2019-03-06] VITALS (8 sets, daily range): BP systolic 127–146; BP diastolic 63–92
[2019-03-06] MEDS: PIPERACILLIN/TAZOBACTAM SOD 3.375 GM in D5W MINI-BAG PLUS 50 ML IV SCH ×4 (02:58→21:29)
[2019-03-06 06:44] LABS: ALBUMIN 2.1 GM/DL (3.2-5.2); BILIRUBIN,TOTAL 1.6 MG/DL (0.2-1.0); CALCIUM LEVEL 7.6 MG/DL (8.8-10.2); CREATININE FOR GFR 1.41 MG/DL (0.70-1.30); GLOMERULAR FILTRATION RATE 52.6 (>42); POTASSIUM SERUM 3.8 MEQ/L (3.5-5.1); TOTAL PROTEIN 5.8 GM/DL (6.4-8.2)
[2019-03-06] MEDS: FORMOTEROL FUMARATE 20 MCG/2 ML INHALATION SOLUTION (PERFOROMIST) INH SCH (07:17)
[2019-03-06] MEDS: TIOTROPIUM INHALER/CAPSULE (SPIRIVA) INH SCH (07:17)
[2019-03-06] MEDS: SYMBICORT 160/4.5MCG INHALER 6GM INH SCH ×2 (07:17→20:17)
[2019-03-06] MEDS: HumaLOG INSULIN (NovoLOG) PER UNIT SC SCH ×4 (07:30→21:00)
[2019-03-06] MEDS: ASPIRIN 81 MG ENTERIC TAB PO SCH (08:32)
[2019-03-06] MEDS: MORPHINE 4 MG/ML 1ML VIAL/SYRINGE (J2270) IV PRN (08:47)
[2019-03-06] MEDS ORDERED: BUPIVACAINE HCL 0.25% 30 ML VIAL As Ordered ONE (11:18)
[2019-03-06] MEDS ORDERED: CONRAY-60 60% 50ML VIAL (Q9961) As Ordered ONE (11:18)
[2019-03-06] MEDS ORDERED: LIDOCAINE 1% SDV INJ 30 ML VIAL As Ordered ONE (11:18)
[2019-03-06] MEDS ORDERED: ROCURONIUM BROMIDE 50 MG/5 ML VIAL As Ordered ONE ×2 (11:45→12:09)
[2019-03-06] MEDS ORDERED: LIDOCAINE 2% INJ 100 MG/5 ML SDV (FOR ANES.) As Ordered ONE (11:45)
[2019-03-06] MEDS ORDERED: fentaNYL 250 MCG/5 ML INJECTION (J3010) As Ordered ONE (11:45)
[2019-03-06] MEDS ORDERED: MIDAZOLAM INJ 2 MG/2 ML VIAL (J2250) As Ordered ONE (11:45)
[2019-03-06] MEDS ORDERED: PROPOFOL 200 MG/20 ML VIAL As Ordered ONE (11:45)
--- NOTE | 2019-03-06 11:56 | IPNPDOC ---
Text Note Date of Service The patient was seen on 03/06/19. NOTE Patient seen at the preoperative holding area for laparoscopic cholecystectomy today. He reports no nausea. He says he is feeling better than the past 2 days though there still is some discomfort over the right upper quadrant, right lower quadrant area. Review of his labs shows the bilirubin still mildly elevated at 1.6 (total bilirubin). Yesterday this is 1.4. I reviewed with him the risks and benefits of going forward with cholecystectomy. I anticipate that the gallbladder will be inflamed which may explain some of the rise in bilirubin. We'll also plan to do an intraoperative cholangiogram to figure out whether the previously seen tiny 2 mm distal: Bile duct stone this past. If we are successful in doing the cholangiogram and there is still a stone he may need other procedures such as an ERCP. Patient voices understanding and has consented to the surgery. VS,Fishbone, I+O VS, Fishbone, I+O Laboratory Tests 03/06/19 05:55 Calcium Level 7.6 L, Aspartate Amino Transf (AST/SGOT) 178 H, Alanine Aminotransferase (ALT/SGPT) 79 H, Alkaline Phosphatase 89, Total Bilirubin 1.6 H, Total Protein 5.8 L, Albumin 2.1 L Vital Signs Date Time Temp Pulse Resp B/P (MAP) Pulse Ox O2 Delivery O2 Flow Rate FiO2 03/06/19 09:00 19 03/06/19 06:00 97.8 60 134/69 (90) 92 03/04/19 17:30 1.0 03/04/19 06:18 Nasal Cannula I&O- Last 24 Hours up to 6 AM 03/06/19 06:00 Intake Total 1970 ml Output Total 950 ml Balance 1020 ml YARA MAGALLANES MD Mar 06, 2019 11:56
[2019-03-06] MEDS ORDERED: dexameTHASONE 4 MG/ML 1ML VIAL (J1100) As Ordered ONE (12:09)
[2019-03-06] MEDS ORDERED: METOCLOPRAMIDE INJ 10MG/2ML VIAL (J2765) As Ordered ONE (12:24)
[2019-03-06] MEDS ORDERED: ONDANSETRON 4MG/2ML VIAL (J2405) As Ordered ONE (12:24)
[2019-03-06] MEDS ORDERED: KETOROLAC 60 MG/2 ML VIAL (J1885) As Ordered ONE (12:24)
[2019-03-06] MEDS ORDERED: ACETAMINOPHEN 1000MG 100ML IV BTL (OFIRMEV) (J0131 PER 10MG) As Ordered ONE (12:25)
[2019-03-06] MEDS ORDERED: SUGAMMADEX SODIUM 500 MG/5 ML VIAL (BRIDION) As Ordered ONE (12:25)
[2019-03-06] MEDS ORDERED: GLUCAGON FOR INJ 1 MG VIAL (J1610) As Ordered ONE (13:24)
--- NOTE | 2019-03-06 15:12 | POST-OPPD ---
Postoperative Procedure Note Date Of Procedure: Mar 06, 2019 PREOPERATIVE DIAGNOSIS: Acute Cholecystitis, abnormal LFTs POSTOPERATIVE DIAGNOSIS: same FINDINGS: Inflamed gallbladder with thick gallbladder wall, dirty appearing bile, multiple small black stones (spillage and retrieved). I attempted to do a cholangiogram but catheter kepts getting extruded with balloon inflated and trying to inject saline/dye. When I clipped the catheter, It was hard to inject and was leaking out of the cystotomy. Cant be sure if there is a distal stone/obstruction. Have to monitor lfts postop and if still elevated may need repeat MRCP/ERCP. PROCEDURE: Laparoscopic Cholecystectomy SURGEON: Guille Cain MD DISH TECHNICIAN: ANESTHESIA: General Anesthesia SPECIMENS: gallbladder ESTIMATED BLOOD LOSS: 50 mL DRAINS: 19 [place] Drain COMPLICATIONS: none, extubated POSTOPERATIVE CONDITION: stable, extubated GUILLE CAIN MD Mar 06, 2019 15:12
--- NOTE | 2019-03-06 15:13 | ROOPDOC ---
[facility] Report Of Operation Report of Operation DATE OF PROCEDURE: 03/06/19 PREOPERATIVE DIAGNOSIS: Acute Cholecystitis, abnormal LFTs POSTOPERATIVE DIAGNOSIS: same FINDINGS: Inflamed gallbladder with thick gallbladder wall, dirty appearing bile, multiple small black stones (spillage and retrieved). I attempted to do a cholangiogram but catheter kepts getting extruded with balloon inflated and trying to inject saline/dye. When I clipped the catheter, It was hard to inject and was leaking out of the cystotomy. Cant be sure if there is a distal stone/obstruction. Have to monitor lfts postop and if still elevated may need repeat MRCP/ERCP. PROCEDURE: Laparoscopic Cholecystectomy SURGEON: Guille Cain MD MANAGER PUBLISHING: ANESTHESIA: General Anesthesia SPECIMENS: gallbladder ESTIMATED BLOOD LOSS: 50 mL DRAINS: 19 [place] Drain COMPLICATIONS: none, extubated POSTOPERATIVE CONDITION: stable, extubated DESCRIPTION OF PROCEDURE: Patient is receiving zosyn 3.375 gm iv q6h for acute cholecystitis. He was brought to the operating room, laid supine on the table, compression boots placed for DVT prophylaxis. General endotracheal anesthesia started. His abdomen then prepped and draped in usual sterile fashion. Surgical timeout was performed prior to confirm right procedure, right patient identification and other necessary information prior to starting surgery. Entry into the abdomen done through an incision a few centimeters above the umbilical cleft. A Veress needle was inserted with a controlled fashion. CO2 insufflation started to pressure 15 mmHg. Using the same incision a 5 mm Visiport was placed under direct vision laparoscope. The area underneath the insertion site was inspected and no injury found. He was then placed in steep reverse Trendelenburg. His right side was tilted up to further expose the gallbladder. Under direct vision a 11 mm epigastric port and Two 5 mm working ports placed along the right subcostal line. Operative findings: On diagnostic laparoscopy, he has some slight rough textured liver with scattered small nodularities (early cirrhosis), small cysts. There is a small amount of perihepatic ascites (100mLs). The omentum is plastered to the lower portion of the right lobe of the liver from inflammatory adhesions from the cholecystitis. After dividing and retracting the omentum, a thickened acutely inflamed gallbladder which is tensely distended is noted. No obvious necrosis of the wall or perforation is noted, pericholecystic fluid. Findings are consistent with severe acute cholecystitis. An aspirating needle was used to decompress the gallbladder at the fundus. Dark colored nonpurulent bile is noted. Once decompressed enough, the fundus of the gallbladder was grasped and the gallbladder is elevated superiorly. Slowly I blunty dissected the omental envelope around the gallbladder which has formed from the acute inflammatory process. As I released the omentum, we could progressively retract the gallbladder further superiorly and work on the lower body and neck of the gallbladder. The thick peritoneal envelope laterally and medially attaching the gallbladder to the liver are opened up with cautery at the lower body to allow for further retraction of the gallbladder neck laterally. Once fully exposed, the area of the hepatocystic triangle was developed mostly with blunt dissection with the suction device and laparoscopic kittner. The cystic artery was identified in its usual postion medially and circumferentially freed. The hepatocystic triangle was then further developed towards the anticipated cystic duct lateral to the artery. This was circumferentially dissected using a [place] instrument.The space behind the duct and lateral to it as well as the posterior wall of the gallbladder was further developed to create a critical view of safety although due to the current inflamed state of the gallbladder I could not fully develop the lower cystic plate. The cystic duct was further developed as it comes off from the neck of the gallbladder. I then prepared for cholangiogram. A clip was placed at the gb-cystic duct junction. A small cystotomy was created distal to this. Presence of bile drai nage is noted. A cook cholangiogram catheter was inserted through the cystotomy At this point the the cystic duct was most accessible and this was clipped 4 times and divided. We were then able to expose the course of the cystic artery better. After again checking her anatomy and verifying that the previously identified cystic duct, this was also clipped 4 times and divided. The rest of the gallbladder was then dissected free of the gallbladder bed using Bovie cautery. There was minimal bleeding at the posterior gallbladder attachments to the liver plate. This was easily controlled with Bovie cautery. The number appears quite mushy and easy to break through the thin capsule and cause some slight bleeding. The gallbladder was then placed in an Endo Catch bag and retrieved outside through the epigastric port site. After re-insufflation and inspected the clips and noted this to be in place. No further bleeding noted. No bile leakage noted. The abdomen was deflated all ports were removed. The epigastric fascial defect repaired with 0 Vicryl in a mattress fashion. Rest of the skin incisions closed with 4-0 Monocryl in subcuticular fashion. Steri- Strips and gauze dressings were placed, the wound. Patient was informed they awakened, extubated and brought to recovery room stable GUILLE CAIN MD Mar 06, 2019 15:13
[2019-03-06] MEDS ORDERED: LR 1,000 ML IV SCH (15:15)
[2019-03-06] MEDS ORDERED: PERCOCET 5MG/325MG TAB PO PRN (15:15)
[2019-03-06] MEDS ORDERED: fentaNYL 100 MCG/2 ML INJECTION (J3010) IV PRN (15:15)
[2019-03-06] MEDS ORDERED: METOCLOPRAMIDE INJ 10MG/2ML VIAL (J2765) IV PRN (15:15)
[2019-03-06] MEDS ORDERED: MEPERIDINE INJ 25 MG/ML VIAL (J2175) IV PRN (15:15)
[2019-03-06] MEDS ORDERED: ONDANSETRON 4MG/2ML VIAL (J2405) IV PRN (15:15)
[2019-03-06] MEDS: oxyCODONE 5MG TAB PO PRN ×2 (15:50→16:23)
[2019-03-06] MEDS ORDERED: oxyCODONE 5MG TAB As Ordered ONE ×2 (15:52→16:22)
[2019-03-06] MEDS: D5W/0.45% SODIUM CHLORIDE 1,000 ML IV SCH (17:14)
[2019-03-06] MEDS: TAMOXIFEN CITRATE 10 MG TAB PO SCH (17:21)
[2019-03-06] MEDS: FOLIC ACID 1 MG TAB PO SCH (17:22)
[2019-03-06] MEDS: MAGNESIUM OXIDE 400 MG TAB (MAG-OX) PO SCH (17:23)
--- NOTE | 2019-03-06 18:19 | IPNPDOC ---
Text Note Date of Service The patient was seen on 03/06/19. NOTE Mr. Solano was seen prior to surgery. He is anticipated to undergo cholecystec caroline. He had been having remarkable right-sided abdominal pain. We have finally persuaded him to make use of the IV morphine. Objective: See vital signs below Physical exam: HENT: Neck is supple with no adenopathy or thyromegaly, he does not currently exhibit diaphoresis, no scleral icterus or jaundice Cardiovascular: Regular rate and rhythm with a normal S1 and S2, no appreciable murmur. Respiratory: Clear to auscultation. Abdominal: Slight distention, moderately tender primarily to the right side, no guarding or rebound but grunts and grimaces, bowel tones are decreased. Extremities: No peripheral edema or lesions. Neuro: No focal neuromotor or sensory deficits ASSESSMENT/PLAN: 1. Cholecystitis. Patient underwent evaluation by MRCP. This shows some filling defect in the proximal cystic duct and distal common bile duct, raising concern for choledocholithiasis. Patient is expectant of going to the OR today for ERCP and subsequent cholecystectomy. The patient admits to having decreased tolerance for his pain and I have made morphine available. 2. Chronic kidney disease Patient has a history of chronic kidney disease. We continue to monitor his creatinine; it is 1.41 today. 3. Wdd-raoxosn-kshefeqlx diabetes mellitus. The patient is being maintained on sliding scale insulin. He is also on IV fluids containing dextrose. Sugars are ranging 92-119. 4. Cancer. The patient has a history of stage IV breast cancer and bladder cancer. He has undergone surgery and treatment of these. These are not of acute concern during this hospital stay. VS,Fishbone, I+O VS, Fishbone, I+O Laboratory Tests 03/06/19 05:55 Calcium Level 7.6 L, Aspartate Amino Transf (AST/SGOT) 178 H, Alanine Aminotransferase (ALT/SGPT) 79 H, Alkaline Phosphatase 89, Total Bilirubin 1.6 H, Total Protein 5.8 L, Albumin 2.1 L Vital Signs Date Time Temp Pulse Resp B/P (MAP) Pulse Ox O2 Delivery O2 Flow Rate FiO2 03/06/19 17:30 97.6 66 20 134/68 (90) 92 3.0 03/04/19 06:18 Nasal Cannula I&O- Last 24 Hours up to 6 AM 03/06/19 06:00 Intake Total 1970 ml Output Total 950 ml Balance 1020 ml MONICA KIMBALL MD Mar 06, 2019 18:19
[2019-03-06] MEDS: FENOFIBRATE 145 MG TAB (TRICOR) PO SCH (21:28)
[2019-03-06] MEDS: ATENOLOL 50 MG TAB PO SCH (21:28)
[2019-03-06] MEDS: ATORVASTATIN 20 MG TAB PO SCH (21:28)
[2019-03-06] MEDS: amLODIPine 5 MG TAB PO SCH (21:29)
[2019-03-06] MEDS: ACETAMINOPHEN TAB 650MG DOSE (2X325MG) PO PRN (22:46)
[2019-03-07] MEDS: PIPERACILLIN/TAZOBACTAM SOD 3.375 GM in D5W MINI-BAG PLUS 50 ML IV SCH ×4 (02:32→23:34)
[2019-03-07] MEDS: MORPHINE 4 MG/ML 1ML VIAL/SYRINGE (J2270) IV PRN ×4 (02:50→18:48)
[2019-03-07 06:00] VITALS: BP 123/64
[2019-03-07 06:37] LABS: BASO % 0.3 % (0.0-1.0); EOS % 0.2 % (0.0-3.0); HEMATOCRIT 32.7 % (42.0-52.0); HEMOGLOBIN 10.4 g/dl (13.5-17.5); LYMPH # 0.7 10^3/uL (1.5-5.0); LYMPH % 10.8 % (24.0-44.0); MEAN CORPUSCULAR HEMOGLOBIN 29.5 pg (27.0-33.0); MEAN CORPUSCULAR HGB CONC 31.8 g/dl (32.0-36.5); MEAN CORPUSCULAR VOLUME 92.6 fl (80.0-96.0); MONO # 0.5 10^3/uL (0.0-0.8); MONO % 7.3 % (0.0-5.0); NEUTROPHILS % 80.6 % (36.0-66.0); PLATELET COUNT, AUTOMATED 203 10^3/uL (150-450); RED BLOOD COUNT 3.53 10^6/uL (4.30-6.10); WHITE BLOOD COUNT 6.2 10^3/uL (4.0-10.0)
[2019-03-07 06:57] LABS: BILIRUBIN,TOTAL 0.8 MG/DL (0.2-1.0); CALCIUM LEVEL 7.5 MG/DL (8.8-10.2); CREATININE FOR GFR 1.44 MG/DL (0.70-1.30); GLOMERULAR FILTRATION RATE 51.3 (>42); POTASSIUM SERUM 4.5 MEQ/L (3.5-5.1); TOTAL PROTEIN 5.8 GM/DL (6.4-8.2)
[2019-03-07] MEDS: ASPIRIN 81 MG ENTERIC TAB PO SCH (08:20)
[2019-03-07] MEDS: HumaLOG INSULIN (NovoLOG) PER UNIT SC SCH ×4 (08:20→21:00)
[2019-03-07] MEDS: SYMBICORT 160/4.5MCG INHALER 6GM INH SCH ×2 (08:29→21:49)
[2019-03-07] MEDS: TIOTROPIUM INHALER/CAPSULE (SPIRIVA) INH SCH (08:29)
[2019-03-07] MEDS: FORMOTEROL FUMARATE 20 MCG/2 ML INHALATION SOLUTION (PERFOROMIST) INH SCH (08:29)
--- NOTE | 2019-03-07 11:26 | IPNPDOC ---
Subjective General Date/Time Seen The patient was seen on 03/07/19 at 11:24. Subject Chief Complaint/History The patient is a 74-year-old male admitted with a reason for visit of Acute Cholecystitis. Current Medications Current Medications Current Medications Medications (Trade) Dose Ordered Sig/Giovanni Route PRN Reason Start Time Stop Time Status Last Admin Dose Admin Acetaminophen (Tylenol Suppository) 650 mg Q4HP PRN ID PAIN / FEVER 03/03/19 23:00 03/03/19 22:52 Acetaminophen (Tylenol Tab) 650 mg Q6H PRN PO PAIN OR FEVER 03/03/19 18:30 Future hold 03/06/19 22:46 Albuterol Sulfate (Proventil, Ventolin Hfa) 2 puff Q6H PRN INH SHORTNESS OF BREATH 03/04/19 06:00 03/04/19 06:16 Amlodipine Besylate (Norvasc) 5 mg QHS PO 03/04/19 21:00 03/06/19 21:29 Aspirin (Ecotrin) 81 mg DAILY PO 03/04/19 09:00 03/07/19 08:20 Atenolol (Tenormin) 50 mg QHS PO 03/04/19 21:00 03/06/19 21:28 Atorvastatin Calcium (Lipitor) 40 mg QHS PO 03/04/19 21:00 03/06/19 21:28 Budesonide/ Formoterol Fumarate (Symbicort 160/ 4.5mcg) 2 puff BID INH 03/04/19 09:00 03/07/19 08:29 Dextrose (Dextrose 50%) 25 ml ASDIRECTED PRN IV SEE LABEL COMMENTS 03/03/19 18:30 03/04/19 11:56 Dextrose/Sodium Chloride 1,000 ml @ 75 mls/hr [id number] IV 03/04/19 12:30 03/07/19 05:12 DC 03/05/19 21:59 Fenofibrate (Tricor) 145 mg QHS PO 03/04/19 21:00 03/06/19 21:28 Fentanyl Citrate (Sublimaze) 25 mcg Q5MP PRN IV MODERATE PAIN (PS 4-7) 03/06/19 15:15 03/06/19 16:15 DC Folic Acid (Folic Acid) 1 mg DAILY@1800 PO 03/04/19 18:00 03/06/19 17:22 Formoterol Fumarate (Perforomist) 20 mcg DAILY@0800 INH 03/04/19 08:00 03/07/19 08:29 Glucagon (Glucagon) 1 mg ASDIRECTED PRN SC SEE LABEL COMMENTS 03/03/19 18:30 Glucose (Glucose) 16 GM ASDIRECTED PRN PO SEE LABEL COMMENTS 03/03/19 18:30 Home Med (Med Rec Complete!) ASDIRECTED XX 03/03/19 19:00 03/03/19 19:01 DC Insulin Human Lispro (HumaLOG INSULIN) See Protocol Table AC SC 03/04/19 07:30 03/07/19 08:20 Insulin Human Lispro (HumaLOG INSULIN) See Protocol Table QHS SC 03/03/19 21:00 Lactated Ringer's 1,000 ml @ 100 mls/hr Q10H IV 03/06/19 15:15 03/06/19 16:15 DC Magnesium Oxide (Mag-Ox) 400 mg DAILY@1800 PO 03/04/19 18:00 03/06/19 17:23 Meperidine HCl (Demerol) 12.5 mg Q5MP PRN IV SHIVERING 03/06/19 15:15 03/06/19 16:15 DC Metoclopramide HCl (REGLAN INJection) 10 mg Q6HP PRN IV NAUSEA OR VOMITING 03/06/19 15:15 03/06/19 16:15 DC Miscellaneous (Unresolved Patient Own Med Order) SEE LABEL COMMENTS DAILY XX 03/04/19 09:00 03/04/19 11:34 DC Morphine Sulfate (Morphine Sulfate Inj) 2 mg Q3HP PRN IV PAIN 03/05/19 17:15 03/07/19 08:21 Ondansetron HCl (ZOFRAN INJection) 4 mg Q4HP PRN IV NAUSEA OR VOMITING 03/06/19 15:15 03/06/19 16:15 DC Ondansetron HCl (ZOFRAN INJection) 4 mg Q6HP PRN IV NAUSEA OR VOMITING 03/03/19 21:15 Oxycodone HCl (Roxicodone, Oxyir) 5 mg ASDIRECTED PRN PO MILD PAIN (PS 1-4) 03/06/19 16:00 03/06/19 16:24 DC 03/06/19 16:23 Oxycodone/ Acetaminophen (Percocet 5mg/ 325mg Tablet) 1 tab ASDIRECTED PRN PO MILD/MODERATE PAIN (PS 1-7) 03/06/19 15:15 03/06/19 15:58 DC Patient Own Medication (Patient'S Own Med) ENTER DRUG NAME & DOSE H... QAM INH 03/04/19 09:00 03/04/19 11:21 DC Piperacillin Sod/ Tazobactam Sod 3.375 gm/Dextrose 50 ml @ 50 mls/hr Q6H IV 03/03/19 21:00 03/07/19 08:19 Sodium Chloride 1,000 ml @ 125 mls/hr Q8H IV 03/03/19 21:15 03/04/19 12:43 DC 03/04/19 08:16 Tamoxifen Citrate (Nolvadex) 20 mg DAILY@1800 PO 03/04/19 18:00 03/06/19 17:21 Tiotropium [place] (Spiriva Handihaler) 1 inhalation DAILY@08 INH 03/04/19 08:00 03/07/19 08:29 Allergies Coded Allergies: No Known Allergies (Unverified , 04/19/18) Objective Physical Examination Examination GENERAL APPEARANCE:[Patient seen, laying in bed, awake, alert, and oriented. Comfortable, in no acute distress]. SKIN: [Warm and moist]. HEENT: [Normocephalic, atraumatic. Edgar palpebral conjunctiva, anicteric sclerae. Lips and mucosa appear moist]. NECK: [Supple, no thyromegaly. No obvious jugular venous distention]. LUNGS: [Clear to auscultation bilaterally. No wheezing appreciated]. HEART: [No chest wall abnormalities. Regular rate and rhythm with no murmurs appreciated]. ABDOMEN: Abdomen is , soft, . [No hepatosplenomegaly. No umbilical or groin herniations, nondistended. No noticeable rebound or guarding. No grimacing with palpation. No rebound tenderness. No masses appreciated]. EXTREMITIES: [Extremities have no deformities. No edema identified]. Vital Signs Vital Signs Date Time Temp Pulse Resp B/P (MAP) Pulse Ox O2 Delivery O2 Flow Rate FiO2 03/07/19 08:31 17 95 3.0 03/07/19 06:00 97.5 62 123/64 (83) 03/04/19 06:18 Nasal Cannula I&Os I&O- Last 24 Hours up to 6 AM 03/07/19 05:59 Intake Total 4115 ml Output Total 800 ml Balance 3315 ml Laboratory Data Labs 24H Laboratory Tests 2 03/06/19 15:41: Bedside Glucose (Misc Panel) 133H 03/06/19 16:53: Bedside Glucose (Misc Panel) 149H 03/06/19 20:31: Bedside Glucose (Misc Panel) 192H 03/06/19 20:33: Bedside Glucose (Misc Panel) 186H 03/07/19 05:47: Immature Granulocyte % (Auto) 0.8, White Blood Count 6.2, Red Blood Count 3.53L, Hemoglobin 10.4L, Hematocrit 32.7L, Mean Corpuscular Volume 92.6, Mean Corpuscul ar Hemoglobin 29.5, Mean Corpuscular Hemoglobin Concent 31.8L, Red Cell Distribution Width 15.9H, Platelet Count 203, Neutrophils (%) (Auto) 80.6H, Lymphocytes (%) (Auto) 10.8L, Monocytes (%) (Auto) 7.3H, Eosinophils (%) (Auto) 0.2, Basophils (%) (Auto) 0.3, Neutrophils # (Auto) 5.0, Lymphocytes # (Auto) 0.7L, Monocytes # (Auto) 0.5, Eosinophils # (Auto) 0.0, Basophils # (Auto) 0.0, Nucleated Red Blood Cells % (auto) 0.0, Anion Gap 6L, Glomerular Filtration Rate 51.3, Blood Urea Nitrogen 25H, Creatinine 1.44H, Sodium Level 136, Potassium Level 4.5, Chloride Level 108H, Carbon Dioxide Level 22, Calcium Level 7.5L, Aspartate Amino Transf (AST/SGOT) 134H, Alanine Aminotransferase (ALT/SGPT) 70, Alkaline Phosphatase 81, Total Bilirubin 0.8, Total Protein 5.8L, Albumin 2.0L, Albumin/Globulin Ratio 0.53L CBC/BMP Laboratory Tests 03/07/19 05:47 Red Blood Count 3.53 L, Mean Corpuscular Volume 92.6, Mean Corpuscular Hemoglobin 29.5, Mean Corpuscular Hemoglobin Concent 31.8 L, Red Cell Distribution Width 15.9 H, Neutrophils (%) (Auto) 80.6 H, Lymphocytes (%) (Auto) 10.8 L, Monocytes (%) (Auto) 7.3 H, Eosinophils (%) (Auto) 0.2, Basophils (%) (Auto) 0.3, Neutrophils # (Auto) 5.0, Lymphocytes # (Auto) 0.7 L, Monocytes # (Auto) 0.5, Eosinophils # (Auto) 0.0, Basophils # (Auto) 0.0, Calcium Level 7.5 L, Aspartate Amino Transf (AST/SGOT) 134 H, Alanine Aminotransferase (ALT/SGPT) 70, Alkaline Phosphatase 81, Total Bilirubin 0.8, Total Protein 5.8 L, Albumin 2.0 L Microbiology Microbiology 03/03/19 Blood Culture - Preliminary, Resulted No Growth after 72 hours. All specime... 03/03/19 Blood Culture - Preliminary, Resulted No Growth after 72 hours. All specime... Impression POD1 Laparoscopic Cholecystectomy His LFTs have normalized (specifically bilirubin) so this may just be from the gb inflammation. continue to monitor. ok to resume anticoagulation advance to regular diet monitor drain. Plan / VTE VTE Prophylaxis Ordered?: Yes (patient is on Xarelto) VTE Exclusion Mechanical Proph: N/A:VTE Prophy Ordered VTE Exclusion Pharmacological: N/A:VTE Prophy Ordered YARA MAGALLANES MD Mar 07, 2019 11:26
[2019-03-07 14:00] VITALS: BP 126/68
--- NOTE | 2019-03-07 15:53 | IPNPDOC ---
Text Note Date of Service The patient was seen on 03/07/19. NOTE Mr. Solano is postop day #1 from laparoscopic cholecystectomy. He states he is appreciative of having pain medication. He rates his pain level at a 6-7. He has not yet been ambulatory. OBJECTIVE: See vital signs below Physical exam: HENT: Neck is supple with no adenopathy or thyromegaly, he does not currently exhibit diaphoresis, no scleral icterus or jaundice Cardiovascular: Regular rate and rhythm with a normal S1 and S2, no appreciable murmur. Respiratory: Clear to auscultation. Abdominal: Distended, tender, especially at incision sites, endoscopic sites are dressed with no bleeding or induration, patient has a KISHOR drain in place to the right side, Bowel tones are decreased. Extremities: No peripheral edema or lesions. Neuro: No focal neuromotor or sensory deficits ASSESSMENT/PLAN: 1. Cholecystitis. Patient underwent evaluation by MRCP. This showed some filling defect in the proximal cystic duct and distal common bile duct, raising concern for choledocholithiasis. Patient went to the OR yesterday for cholecystectomy. He has had improvement to his liver enzymes and bilirubin is now down to 0.8. 2. Chronic kidney disease Patient has a history of chronic kidney disease. We continue to monitor his creatinine; it is 1.44 today. 3. Ebn-thzinde-gbvoozmcu diabetes mellitus. The patient is being maintained on sliding scale insulin. He is also on IV fluids containing dextrose. Sugars are ranging 92-119. He has requested a check of his A1c. 4. Cancer. The patient has a history of stage IV breast cancer and bladder cancer. He has undergone surgery and treatment of these. These are not of acute concern during this hospital stay. 5. VTE The patient has a history of left lower extremity DVT. He is cleared to resume his treatment/prophylaxis with Xarelto. VS,Fishbone, I+O VS, Fishbone, I+O Laboratory Tests 03/07/19 05:47 Red Blood Count 3.53 L, Mean Corpuscular Volume 92.6, Mean Corpuscular Hemoglobin 29.5, Mean Corpuscular Hemoglobin Concent 31.8 L, Red Cell Distribution Width 15.9 H, Neutrophils (%) (Auto) 80.6 H, Lymphocytes (%) (Auto) 10.8 L, Monocytes (%) (Auto) 7.3 H, Eosinophils (%) (Auto) 0.2, Basophils (%) (Auto) 0.3, Neutrophils # (Auto) 5.0, Lymphocytes # (Auto) 0.7 L, Monocytes # (Auto) 0.5, Eosinophils # (Auto) 0.0, Basophils # (Auto) 0.0, Calcium Level 7.5 L, Aspartate Amino Transf (AST/SGOT) 134 H, Alanine Aminotransferase (ALT/SGPT) 70, Alkaline Phosphatase 81, Total Bilirubin 0.8, Total Protein 5.8 L, Albumin 2.0 L Vital Signs Date Time Temp Pulse Resp B/P (MAP) Pulse Ox O2 Delivery O2 Flow Rate FiO2 03/07/19 14:21 16 03/07/19 14:00 97.7 61 126/68 (87) 95 3.0 03/04/19 06:18 Nasal Cannula I&O- Last 24 Hours up to 6 AM 03/07/19 06:00 Intake Total 4415 ml Output Total 1000 ml Balance 3415 ml MONICA KIMBALL MD Mar 07, 2019 15:53
[2019-03-07] MEDS: MAGNESIUM OXIDE 400 MG TAB (MAG-OX) PO SCH (17:57)
[2019-03-07] MEDS: TAMOXIFEN CITRATE 10 MG TAB PO SCH (17:58)
[2019-03-07] MEDS: FOLIC ACID 1 MG TAB PO SCH (17:58)
[2019-03-07] MEDS: RIVAROXABAN 15 MG TAB (XARELTO) PO SCH (17:58)
[2019-03-07 22:00] VITALS: BP 127/63
[2019-03-07] MEDS: ATORVASTATIN 20 MG TAB PO SCH (23:34)
[2019-03-07] MEDS: FENOFIBRATE 145 MG TAB (TRICOR) PO SCH (23:34)
[2019-03-07] MEDS: ATENOLOL 50 MG TAB PO SCH (23:35)
[2019-03-07] MEDS: amLODIPine 5 MG TAB PO SCH (23:35)
[2019-03-07] MEDS: ACETAMINOPHEN TAB 650MG DOSE (2X325MG) PO PRN (23:47)
[2019-03-08] MEDS: PIPERACILLIN/TAZOBACTAM SOD 3.375 GM in D5W MINI-BAG PLUS 50 ML IV SCH ×4 (04:50→21:36)
[2019-03-08] MEDS ORDERED: NORCO, ANEXSIA 5/325MG TABLET (HYDROcodone/ACETAMINOPHEN) PO ONE (05:15)
[2019-03-08 06:00] VITALS: BP 117/59
[2019-03-08 06:18] LABS: BASO % 0.5 % (0.0-1.0); EOS # 0.2 10^3/uL (0.0-0.5); EOS % 2.5 % (0.0-3.0); HEMATOCRIT 34.1 % (42.0-52.0); HEMOGLOBIN 10.9 g/dl (13.5-17.5); LYMPH % 16.7 % (24.0-44.0); MEAN CORPUSCULAR HEMOGLOBIN 29.6 pg (27.0-33.0); MEAN CORPUSCULAR VOLUME 92.7 fl (80.0-96.0); MONO # 0.6 10^3/uL (0.0-0.8); MONO % 10.3 % (0.0-5.0); NEUTROPHILS # 4.1 10^3/uL (1.5-8.5); NEUTROPHILS % 68.3 % (36.0-66.0); PLATELET COUNT, AUTOMATED 214 10^3/uL (150-450); RED BLOOD COUNT 3.68 10^6/uL (4.30-6.10)
[2019-03-08 06:51] LABS: ALBUMIN 2.2 GM/DL (3.2-5.2); BILIRUBIN,TOTAL 0.8 MG/DL (0.2-1.0); CALCIUM LEVEL 7.7 MG/DL (8.8-10.2); CREATININE FOR GFR 1.3 MG/DL (0.70-1.30); GLOMERULAR FILTRATION RATE 57.8 (>42); POTASSIUM SERUM 4.2 MEQ/L (3.5-5.1)
[2019-03-08 06:52] LABS: HEMOGLOBIN A1c 6.2 %
[2019-03-08] MEDS: HumaLOG INSULIN (NovoLOG) PER UNIT SC SCH ×4 (07:30→21:00)
[2019-03-08] MEDS: ASPIRIN 81 MG ENTERIC TAB PO SCH (08:10)
[2019-03-08] MEDS: ACETAMINOPHEN TAB 650MG DOSE (2X325MG) PO PRN ×2 (08:16→15:43)
[2019-03-08] MEDS: FORMOTEROL FUMARATE 20 MCG/2 ML INHALATION SOLUTION (PERFOROMIST) INH SCH (08:22)
[2019-03-08] MEDS: TIOTROPIUM INHALER/CAPSULE (SPIRIVA) INH SCH (08:22)
[2019-03-08] MEDS: SYMBICORT 160/4.5MCG INHALER 6GM INH SCH ×2 (08:22→19:17)
[2019-03-08] MEDS: NORCO, ANEXSIA 5/325MG TABLET (HYDROcodone/ACETAMINOPHEN) PO PRN ×2 (13:00→21:51)
[2019-03-08 14:00] VITALS: BP 129/63
--- NOTE | 2019-03-08 15:07 | IPNPDOC ---
Text Note Date of Service The patient was seen on 03/08/19. NOTE Mr. Solano is up in a chair. He has been ambulatory. He has tolerated breakfast. He is postoperative day #2 from laparoscopic cholecystectomy. Objective: Physical exam: HENT: Neck is supple with no adenopathy or thyromegaly, he does not currently exhibit diaphoresis, no scleral icterus or jaundice Cardiovascular: Regular rate and rhythm with a normal S1 and S2, no appreciable murmur. Respiratory: Clear to auscultation. Abdominal: Decreased distention, decreased tenderness at incision sites, endoscopic sites are dressed with no bleeding or induration, patient has a KISHOR drain in place to the right side, Bowel tones are present, patient has not yet had a bowel movement but states he is passing gas Extremities: No peripheral edema or lesions. Neuro: No focal neuromotor or sensory deficits ASSESSMENT/PLAN: 1. Cholecystitis. Patient underwent evaluation by MRCP. This showed some filling defect in the proximal cystic duct and distal common bile duct, raising concern for choledocholithiasis. He is now postop day 2 from cholecystectomy. He has had improvement to his liver enzymes and bilirubin is now down to 0.8. 2. Chronic kidney disease Patient has a history of chronic kidney disease. We continue to monitor his creatinine; it is 1.30 today-steady downward trend. 3. Jxt-ghooare-lcelzanrc diabetes mellitus. The patient is being maintained on sliding scale insulin. He is also on IV fluids containing dextrose. Sugars are ranging 92-119. He has requested a check of his A1c; it is 6.2. 4. Cancer. The patient has a history of stage IV breast cancer and bladder cancer. He has undergone surgery and treatment of these. These are not of acute concern during this hospital stay. 5. VTE The patient has a history of left lower extremity DVT. He has been resumed on his anticoagulation with Xarelto. VS,Fishbone, I+O VS, Fishbone, I+O Laboratory Tests 03/08/19 05:56 Red Blood Count 3.68 L, Mean Corpuscular Volume 92.7, Mean Corpuscular Hemoglobin 29.6, Mean Corpuscular Hemoglobin Concent 32.0, Red Cell Distribution Width 16.0 H, Neutrophils (%) (Auto) 68.3 H, Lymphocytes (%) (Auto) 16.7 L, Monocytes (%) (Auto) 10.3 H, Eosinophils (%) (Auto) 2.5, Basophils (%) (Auto) 0.5, Neutrophils # (Auto) 4.1, Lymphocytes # (Auto) 1.0 L, Monocytes # (Auto) 0.6, Eosinophils # (Auto) 0.2, Basophils # (Auto) 0.0, Calcium Level 7.7 L, Aspartate Amino Transf (AST/SGOT) 90 H, Alanine Aminotransferase (ALT/SGPT) 52, Alkaline Phosphatase 74, Total Bilirubin 0.8, Total Protein 6.0 L, Albumin 2.2 L Vital Signs Date Time Temp Pulse Resp B/P (MAP) Pulse Ox O2 Delivery O2 Flow Rate FiO2 03/08/19 14:00 98.1 64 18 129/63 (85) 90 1.0 03/04/19 06:18 Nasal Cannula I&O- Last 24 Hours up to 6 AM 03/08/19 06:00 Intake Total 580 ml Output Total 1030 ml Balance -450 ml MONICA KIMBALL MD Mar 08, 2019 15:07
--- NOTE | 2019-03-08 15:29 | IPN ---
DATE: 03/08/2019 TIME: 8:50 a.m. HISTORY: The patient is now postop day #2 from a laparoscopic cholecystectomy for acute cholecystitis. At surgery, there was spillage of bile and some small stones, which were reportedly retrieved and removed. A drain was left in the subhepatic space postoperatively. The patient has been taking a diet apparently adequately. He has been out of bed to ambulate with a walker. He denies any nausea or vomiting. Vital signs show that he has been afebrile over the past 24 hours. His pulse is generally in the 60s to low 70s. Blood pressure is good and his pulse oximetry shows slightly low normal oxygen saturations. Intake and output shows that yesterday he had 1300 in and 1200 out. He had 900 mL of urine output with 290 recorded from his subhepatic drain. So far today, he has had only 40 mL from his drain. PHYSICAL EXAMINATION: The patient is sitting up doing a nebulizer treatment, which he was completing when I came in. He is alert and oriented. He denies any significant pain currently. Heart exam shows a regular rhythm. The lungs are generally clear. The abdomen shows a small drain in the right side of the abdomen with some turbid yellowish fluid. The abdomen is nondistended. He has bowel sounds present and no undue tenderness. Laboratory studies show a white count of 6 with a hemoglobin of 11, hematocrit of 34, and a platelet count of 214,000. Differential count shows 68% neutrophils, 17% lymphocytes and 10% monocytes. Chemistry profile shows sodium of 139, potassium 4.2, chloride 109, CO2 of 24, BUN of 29, creatinine 1.3 and glucose of 95. Liver function tests show a normal total bilirubin 0.8 with an AST of 90, ALT of 52 and an alk phos of 74. His fingerstick blood sugars have ranged between 131 and 191 over the past 24 hours. The patient has blood cultures from the second that are no growth. No new imaging studies. IMPRESSION: The patient is doing well now 2 days postop from his laparoscopic cholecystectomy for acute cholecystitis. His drain has a decreased amount of primarily serous fluid today. PLAN: The patient will have an order for incentive spirometry placed. I ordered some [place] that he can take in lieu of IV morphine. The patient will continue all of his other usual medications. I would anticipate that we may be able to remove his drain tomorrow and he could be discharged when medically stable anytime thereafter.
[2019-03-08] MEDS: MAGNESIUM OXIDE 400 MG TAB (MAG-OX) PO SCH (17:29)
[2019-03-08] MEDS: TAMOXIFEN CITRATE 10 MG TAB PO SCH (17:29)
[2019-03-08] MEDS: FOLIC ACID 1 MG TAB PO SCH (17:30)
[2019-03-08] MEDS: RIVAROXABAN 15 MG TAB (XARELTO) PO SCH (17:30)
[2019-03-08] MEDS: FENOFIBRATE 145 MG TAB (TRICOR) PO SCH (21:36)
[2019-03-08] MEDS: amLODIPine 5 MG TAB PO SCH (21:37)
[2019-03-08] MEDS: ATENOLOL 50 MG TAB PO SCH (21:37)
[2019-03-08] MEDS: ATORVASTATIN 20 MG TAB PO SCH (21:38)
[2019-03-08 23:59] VITALS: BP 142/67
[2019-03-09] MEDS: PIPERACILLIN/TAZOBACTAM SOD 3.375 GM in D5W MINI-BAG PLUS 50 ML IV SCH ×2 (03:59→08:15)
[2019-03-09] MEDS: NORCO, ANEXSIA 5/325MG TABLET (HYDROcodone/ACETAMINOPHEN) PO PRN ×3 (04:03→13:52)
[2019-03-09 06:00] VITALS: BP 138/69
[2019-03-09 06:29] LABS: BASO % 0.5 % (0.0-1.0); EOS # 0.2 10^3/uL (0.0-0.5); EOS % 2.9 % (0.0-3.0); HEMOGLOBIN 11.1 g/dl (13.5-17.5); LYMPH # 1.2 10^3/uL (1.5-5.0); MEAN CORPUSCULAR HEMOGLOBIN 29.6 pg (27.0-33.0); MEAN CORPUSCULAR HGB CONC 31.7 g/dl (32.0-36.5); MEAN CORPUSCULAR VOLUME 93.3 fl (80.0-96.0); MONO # 0.7 10^3/uL (0.0-0.8); MONO % 9.7 % (0.0-5.0); NEUTROPHILS % 68.8 % (36.0-66.0); PLATELET COUNT, AUTOMATED 226 10^3/uL (150-450); RED BLOOD COUNT 3.75 10^6/uL (4.30-6.10); WHITE BLOOD COUNT 7.3 10^3/uL (4.0-10.0)
[2019-03-09 07:03] LABS: ALBUMIN 2.3 GM/DL (3.2-5.2); BILIRUBIN,TOTAL 0.7 MG/DL (0.2-1.0); CALCIUM LEVEL 7.8 MG/DL (8.8-10.2); CREATININE FOR GFR 1.28 MG/DL (0.70-1.30); GLOMERULAR FILTRATION RATE 58.8 (>42); TOTAL PROTEIN 5.6 GM/DL (6.4-8.2)
[2019-03-09] MEDS: HumaLOG INSULIN (NovoLOG) PER UNIT SC SCH ×4 (07:06→21:00)
[2019-03-09] MEDS: SYMBICORT 160/4.5MCG INHALER 6GM INH SCH ×2 (07:43→20:05)
[2019-03-09] MEDS: FORMOTEROL FUMARATE 20 MCG/2 ML INHALATION SOLUTION (PERFOROMIST) INH SCH (07:43)
[2019-03-09] MEDS: TIOTROPIUM INHALER/CAPSULE (SPIRIVA) INH SCH (07:43)
[2019-03-09] MEDS: ASPIRIN 81 MG ENTERIC TAB PO SCH (08:15)
[2019-03-09 14:00] VITALS: BP 125/60
[2019-03-09] MEDS: ACETAMINOPHEN TAB 650MG DOSE (2X325MG) PO PRN ×2 (15:09→21:49)
--- NOTE | 2019-03-09 15:18 | IPNPDOC ---
Text Note Date of Service The patient was seen on 03/09/19. NOTE SUBJECTIVE: The patient is up in a chair. He has been ambulatory. He continues to tolerate a regular diet. He has had bowel movements. The patient is status post laparoscopic cholecystectomy. He still has a drain in place. OBJECTIVE: Physical exam: HENT: Neck is supple with no adenopathy or thyromegaly, he does not currently exhibit diaphoresis, no scleral icterus or jaundice Cardiovascular: Regular rate and rhythm with a normal S1 and S2, no appreciable murmur. Respiratory: Clear to auscultation. Abdominal: Decreased distention, decreased tenderness at incision sites, e ndoscopic sites are dressed with no bleeding or induration, patient has a KISHOR drain in place to the right side, Bowel tones are present Extremities: No peripheral edema or lesions. Neuro: No focal neuromotor or sensory deficits ASSESSMENT/PLAN: 1. Cholecystitis. Patient underwent evaluation by MRCP. This showed some filling defect in the proximal cystic duct and distal common bile duct, raising concern for choledocholithiasis. He is now postop day 3 from cholecystectomy. He has had improvement to his liver enzymes and bilirubin is now down to 0.7. 2. Chronic kidney disease Patient has a history of chronic kidney disease. We continue to monitor his creatinine; it is 1.28 today-steady downward trend. 3. Itj-jjofqgo-nidqtiucn diabetes mellitus. The patient is being maintained on sliding scale insulin. Sugars are ranging 134-180. The patient is on glipizide and Januvia at home and these can be restored. He has requested a check of his A1c; it is 6.2. 4. Cancer. The patient has a history of stage IV breast cancer and bladder cancer. He has undergone surgery and treatment of these. These are not of acute concern during this hospital stay. 5. VTE The patient has a history of left lower extremity DVT. He has been resumed on his anticoagulation with Xarelto. VS,Fishbone, I+O VS, Fishbone, I+O Laboratory Tests 03/09/19 06:11 Red Blood Count 3.75 L, Mean Corpuscular Volume 93.3, Mean Corpuscular Hemoglobin 29.6, Mean Corpuscular Hemoglobin Concent 31.7 L, Red Cell Distribution Width 16.3 H, Neutrophils (%) (Auto) 68.8 H, Lymphocytes (%) (Auto) 16.0 L, Monocytes (%) (Auto) 9.7 H, Eosinophils (%) (Auto) 2.9, Basophils (%) (Auto) 0.5, Neutrophils # (Auto) 5.0, Lymphocytes # (Auto) 1.2 L, Monocytes # (Auto) 0.7, Eosinophils # (Auto) 0.2, Basophils # (Auto) 0.0, Calcium Level 7.8 L, Aspartate Amino Transf (AST/SGOT) 77 H, Alanine Aminotransferase (ALT/SGPT) 44, Alkaline Phosphatase 66, Total Bilirubin 0.7, Total Protein 5.6 L, Albumin 2.3 L Vital Signs Date Time Temp Pulse Resp B/P (MAP) Pulse Ox O2 Delivery O2 Flow Rate FiO2 03/09/19 14:29 16 03/09/19 09:00 1.0 03/09/19 06:00 96.8 55 138/69 (92) 93 03/04/19 06:18 Nasal Cannula I&O- Last 24 Hours up to 6 AM 03/09/19 05:59 Intake Total 1180 ml Output Total 1675 ml Balance -495 ml MONICA KIMBALL MD Mar 09, 2019 15:18
[2019-03-09] MEDS: glipiZIDE XL 5 MG TABCR PO SCH (15:38)
[2019-03-09] MEDS: SITagliptin 50 MG TAB (JANUVIA) PO SCH (15:39)
--- NOTE | 2019-03-09 16:46 | IPN ---
DATE: 03/09/2019 HISTORY: The patient was admitted to the hospital with acute cholecystitis and is now postop day #3 from a laparoscopic cholecystectomy. He is tolerating a regular diet. He is back on his usual anticoagulation. He has a single drain in place in the subhepatic space. He has some mild right upper quadrant discomfort. Vital signs show that the patient has been afebrile over the past 24 hours. His pulses in the 50s and 60s. His blood pressure is excellent. Intake and output yesterday showed 1200 in with 1700 out. He had 125 mL out his drain, but only 40 mL recorded today. He has had two bowel movements today. PHYSICAL EXAMINATION: The patient is sitting up in a chair at the bedside. He is alert and oriented and appears quite comfortable. Skin is warm and dry. Heart exam shows a regular rate and rhythm. The lungs are clear. The abdomen is mildly obese but soft and without undue tenderness. His drain has some serous fluid with a minimal amount of blood settled in the tubing. Laboratory studies today show CBC with a white count of 7, hemoglobin of 11, hematocrit of 35 and platelet count of 226,000. Differential count shows 69% neutrophils, 16% lymphocytes and 10% monocytes. Chemistry profile shows a sodium of 140, potassium 5.0, chloride 109, CO2 of 24, BUN of 30, creatinine 1.3 and a glucose of 84. LFTs are normal with the exception of a minimal elevation of the AST to 77, but this has been falling over the last several days. IMPRESSION: The patient is doing well now 3 days postop from his laparoscopic cholecystectomy. PLAN: His drain output has diminished and is primarily serous and I will have his drain removed today. He has two IVs in his right arm and I will have one of these removed. I see no need to continue his antibiotics any further and I will stop his Zosyn today as well. I would anticipate that the patient would be ready for discharge within the next 1-2 days.
[2019-03-09] MEDS: TAMOXIFEN CITRATE 10 MG TAB PO SCH (17:52)
[2019-03-09] MEDS: MAGNESIUM OXIDE 400 MG TAB (MAG-OX) PO SCH (17:52)
[2019-03-09] MEDS: RIVAROXABAN 15 MG TAB (XARELTO) PO SCH (17:52)
[2019-03-09] MEDS: FOLIC ACID 1 MG TAB PO SCH (17:52)
[2019-03-09] MEDS: FENOFIBRATE 145 MG TAB (TRICOR) PO SCH (21:33)
[2019-03-09] MEDS: ATORVASTATIN 20 MG TAB PO SCH (21:34)
[2019-03-09] MEDS: ATENOLOL 50 MG TAB PO SCH (21:34)
[2019-03-09] MEDS: amLODIPine 5 MG TAB PO SCH (21:34)
[2019-03-09 22:00] VITALS: BP 142/73
[2019-03-10] MEDS: NORCO, ANEXSIA 5/325MG TABLET (HYDROcodone/ACETAMINOPHEN) PO PRN ×2 (05:53→22:50)
[2019-03-10 06:00] VITALS: BP 141/76
[2019-03-10] MEDS: TIOTROPIUM INHALER/CAPSULE (SPIRIVA) INH SCH (08:23)
[2019-03-10] MEDS: SYMBICORT 160/4.5MCG INHALER 6GM INH SCH ×2 (08:27→20:57)
[2019-03-10] MEDS: FORMOTEROL FUMARATE 20 MCG/2 ML INHALATION SOLUTION (PERFOROMIST) INH SCH (08:32)
[2019-03-10] MEDS: SITagliptin 50 MG TAB (JANUVIA) PO SCH (09:34)
[2019-03-10] MEDS: ASPIRIN 81 MG ENTERIC TAB PO SCH (09:34)
[2019-03-10] MEDS: glipiZIDE XL 5 MG TABCR PO SCH (09:34)
[2019-03-10] MEDS: HumaLOG INSULIN (NovoLOG) PER UNIT SC SCH ×4 (09:35→20:56)
[2019-03-10 14:00] VITALS: BP 140/58
[2019-03-10] MEDS: ACETAMINOPHEN TAB 650MG DOSE (2X325MG) PO PRN (14:16)
--- NOTE | 2019-03-10 17:04 | IPNPDOC ---
Text Note Date of Service The patient was seen on 03/10/19. NOTE SUBJECTIVE: The patient is up in a chair. He has been ambulatory. He continues to tolerate a regular diet. He has had bowel movements. The patient is status post laparoscopic cholecystectomy. His drain has been removed. His pain is reasonably well controlled. OBJECTIVE: Physical exam: HENT: Neck is supple with no adenopathy or thyromegaly, he does not currently exhibit diaphoresis, no scleral icterus or jaundice Cardiovascular: Regular rate and rhythm with a normal S1 and S2, no appreciable murmur. Respiratory: Clear to auscultation. Abdominal: Decreased distention, decreased tenderness at incision sites, endoscopic sites are dressed with no bleeding or induration, bowel tones are present Extremities: No peripheral edema or lesions. Neuro: No focal neuromotor or sensory deficits ASSESSMENT/PLAN: 1. Cholecystitis. Patient underwent evaluation by MRCP. This showed some filling defect in the proximal cystic duct and distal common bile duct, raising concern for choledocholithiasis. He is now postop day 4 from cholecystectomy. He has had improvement to his liver enzymes and bilirubin is now down to 0.7. Drain has been removed. Anticipate he should be able to be discharged to home tomorrow. 2. Chronic kidney disease Patient has a history of chronic kidney disease. We continue to monitor his creatinine; it is 1.28 today-steady downward trend. 3. Fdy-wzfpevz-gkoiwbuom diabetes mellitus. The patient is being maintained on sliding scale insulin. Sugars are ranging 107 - 134. The patient is on glipizide and Januvia at home and these have been restored. 4. Cancer. The patient has a history of stage IV breast cancer and bladder cancer. He has undergone surgery and treatment of these. These are not of acute concern during this hospital stay. 5. VTE The patient has a history of left lower extremity DVT. He has been resumed on his anticoagulation with Xarelto. VS,Fishbone, I+O VS, Fishbone, I+O Vital Signs Date Time Temp Pulse Resp B/P (MAP) Pulse Ox O2 Delivery O2 Flow Rate FiO2 03/10/19 14:00 98.0 61 18 140/58 (85) 95 03/09/19 21:00 1.0 03/04/19 06:18 Nasal Cannula I&O- Last 24 Hours up to 6 AM 03/10/19 06:00 Intake Total 1490 ml Output Total 975 ml Balance 515 ml MONICA KIMBALL MD Mar 10, 2019 17:04
[2019-03-10] MEDS: RIVAROXABAN 15 MG TAB (XARELTO) PO SCH (17:59)
[2019-03-10] MEDS: MAGNESIUM OXIDE 400 MG TAB (MAG-OX) PO SCH (17:59)
[2019-03-10] MEDS: TAMOXIFEN CITRATE 10 MG TAB PO SCH (17:59)
[2019-03-10] MEDS: FOLIC ACID 1 MG TAB PO SCH (17:59)
[2019-03-10] MEDS: amLODIPine 5 MG TAB PO SCH (20:07)
[2019-03-10] MEDS: ATORVASTATIN 20 MG TAB PO SCH (20:07)
[2019-03-10] MEDS: FENOFIBRATE 145 MG TAB (TRICOR) PO SCH (20:07)
[2019-03-10] MEDS: ATENOLOL 50 MG TAB PO SCH (20:07)
[2019-03-10 22:00] VITALS: BP 140/62
[2019-03-11 06:47] VITALS: BP 139/71
[2019-03-11] MEDS: HumaLOG INSULIN (NovoLOG) PER UNIT SC SCH ×4 (07:30→21:00)
[2019-03-11] MEDS: TIOTROPIUM INHALER/CAPSULE (SPIRIVA) INH SCH (07:55)
[2019-03-11] MEDS: SYMBICORT 160/4.5MCG INHALER 6GM INH SCH ×2 (07:56→20:24)
[2019-03-11] MEDS: ASPIRIN 81 MG ENTERIC TAB PO SCH (08:20)
[2019-03-11] MEDS: glipiZIDE XL 5 MG TABCR PO SCH (08:20)
[2019-03-11] MEDS: SITagliptin 50 MG TAB (JANUVIA) PO SCH (08:20)
[2019-03-11] MEDS: ACETAMINOPHEN TAB 650MG DOSE (2X325MG) PO PRN ×2 (10:09→22:06)
--- NOTE | 2019-03-11 13:13 | IPNPDOC ---
Text Note Date of Service The patient was seen on 03/11/19. NOTE SUBJECTIVE: Mr. Solano is status post cholecystectomy for cholecystitis. He has been ambulatory. He has tolerated a regular diet. His pain is reasonably well controlled. I have received notification from nursing staff that the patient has had desaturations down to 83% with exertion. The patient does have a history of COPD but has not had any oxygen requirement prior to this episode during this hospital stay and has not had remarkable wheezing or cough. OBJECTIVE: Please see vital signs below Physical exam: HENT: Neck is supple with no adenopathy or thyromegaly, he does not currently exhibit diaphoresis, no scleral icterus or jaundice Cardiovascular: Regular rate and rhythm with a normal S1 and S2, no appreciable murmur. Respiratory: Clear to auscultation, no rhonchi, rales, wheezes or cough Abdominal: Decreased distention, decreased tenderness at incision sites, endoscopic sites are dressed with no bleeding or induration, bowel tones are present Extremities: No peripheral edema or lesions. Neuro: No focal neuromotor or sensory deficits ASSESSMENT/PLAN: 1. Cholecystitis. Patient underwent evaluation by MRCP. This showed some filling defect in the proximal cystic duct and distal common bile duct, raising concern for choledocholithiasis. He is now postop day 5 from cholecystectomy. He has had improvement to his liver enzymes and bilirubin is now down to 0.7. Drain has been removed. Plans for the patient's discharge to home are delayed due to episodes of desaturations. We will check a chest x-ray. 2. Chronic kidney disease Patient has a history of chronic kidney disease. We continue to monitor his creatinine; it is 1.28 today-steady downward trend. 3. Zpm-evaaxiv-cytxivjai diabetes mellitus. The patient is being maintained on sliding scale insulin. Sugars are ranging 107 - 134. The patient is on glipizide and Januvia at home and these have been restored. 4. Cancer. The patient has a history of stage IV breast cancer and bladder cancer. He has undergone surgery and treatment of these. These are not of acute concern during this hospital stay. 5. VTE The patient has a history of left lower extremity DVT. He has been resumed on his anticoagulation with Xarelto. VS,Fishbone, I+O VS, Fishbone, I+O Vital Signs Date Time Temp Pulse Resp B/P (MAP) Pulse Ox O2 Delivery O2 Flow Rate FiO2 03/11/19 06:47 97.4 64 18 139/71 (93) 96 03/09/19 21:00 1.0 I&O- Last 24 Hours up to 6 AM 03/11/19 05:59 Intake Total 1260 ml Output Total 1550 ml Balance -290 ml MONICA KIMBALL MD Mar 11, 2019 13:13
[2019-03-11 14:00] VITALS: BP 139/64
--- NOTE | 2019-03-11 16:34 | REP ---
Chest x-ray: Two views. History: Episodes of desaturation. No comparison study. Findings: Patient is status post median sternotomy. The right hemidiaphragm is rather elevated. There is no pleural effusion however visible as the pleural angles are sharp. Heart is near the upper range of normal in size although difficult to evaluate because of the elevated right hemidiaphragm. Pulmonary vasculature is not increased. No infiltrate is seen. There is wedging one of the lower thoracic vertebrae and there is bony sclerosis in the vertebrae. 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 Impression: Prior sternotomy. Elevated right hemidiaphragm borderline heart size. Sclerotic wedge to lower thoracic vertebrae suggestive of sclerotic breast metastasis. Electronically Signed by Amrit Coats MD 03/11/2019 04:57 P
[2019-03-11] MEDS: MAGNESIUM OXIDE 400 MG TAB (MAG-OX) PO SCH (17:19)
[2019-03-11] MEDS: TAMOXIFEN CITRATE 10 MG TAB PO SCH (17:19)
[2019-03-11] MEDS: FOLIC ACID 1 MG TAB PO SCH (17:19)
[2019-03-11] MEDS: RIVAROXABAN 15 MG TAB (XARELTO) PO SCH (17:19)
[2019-03-11 20:00] VITALS: BP 139/65
[2019-03-11] MEDS: FENOFIBRATE 145 MG TAB (TRICOR) PO SCH (21:19)
[2019-03-11 21:20] VITALS: BP 133/64
[2019-03-11] MEDS: ATENOLOL 50 MG TAB PO SCH (21:20)
[2019-03-11] MEDS: ATORVASTATIN 20 MG TAB PO SCH (21:20)
[2019-03-11] MEDS: amLODIPine 5 MG TAB PO SCH (21:20)
[2019-03-12] MEDS: HumaLOG INSULIN (NovoLOG) PER UNIT SC SCH ×2 (07:30→11:47)
[2019-03-12] MEDS: SYMBICORT 160/4.5MCG INHALER 6GM INH SCH (07:37)
[2019-03-12] MEDS: TIOTROPIUM INHALER/CAPSULE (SPIRIVA) INH SCH (07:37)
[2019-03-12] MEDS: glipiZIDE XL 5 MG TABCR PO SCH (09:00)
[2019-03-12] MEDS: SITagliptin 50 MG TAB (JANUVIA) PO SCH (09:00)
[2019-03-12] MEDS: ASPIRIN 81 MG ENTERIC TAB PO SCH (09:40)
--- NOTE | 2019-03-12 17:34 | DS.PDOC ---
Discharge Summary General Date of Admission Mar 03, 2019 at 17:42 Date of Discharge March 12, 2019 Specialist/Consultants Involve: YARA CAIN MD Discharge Summary PROCEDURES PERFORMED DURING STAY: [Laparoscopic cholecystectomy]. ADMITTING DIAGNOSES: 1. [Acute cholecystitis with cholelithiasis]. DISCHARGE DIAGNOSES: 1. [Acute cholecystitis resolved, essential hypertension, left lower extremity DVT for which he is on chronic anticoagulation, wwm-anobiyp-vszhibjen diabetes mellitus, gastroesophageal reflux disease, anemia of chronic disease, COPD, non- oxygen dependent and no acute exacerbation during this hospital stay, dyslipidemia, history of stage IV left breast carcinoma, history of bladder cancer]. COMPLICATIONS/CHIEF COMPLAINT: Acute Cholecystitis. HISTORY OF PRESENT ILLNESS/HOSPITAL COURSE: [This is a 74-year-old male who had initially presented 4 weeks ago to an outlying facility with right-sided abdominal pain. At that time he was told he had gallstones. The patient re- presented then at our hospital with nausea, vomiting and severe abdominal pain. His symptoms were accompanied by fever. Patient was felt to have progressed to acute cholecystitis. Patient was noted to have a mild leukocytosis with a white count of 12.4. Patient was started on empiric antibiotics in the form of Levaquin. Additional study by MRCP did reveal 2 small 2 mm stones to the proximal cystic duct and one small stone to the distal common bile duct. Otherwise, the patient was not considered to have choledocholithiasis. The patient underwent laparoscopic cholecystectomy without complications. Gallbladder was noted to be inflamed and a drain was placed. Patient had a smooth postoperative course. He was ambulatory and tolerating a regular diet. Drain was able to be removed prior to discharge. Patient did not have any home health needs. The patient's anticoagulation for his left lower extremity DVT was held for surgery. He was then restored to Xarelto postop.]. DISCHARGE MEDICATIONS: Please see below. Discharge meds are as listed. Additionally, patient was given a written prescription for oxycodone IR 5 mg by mouth every 8 hours as needed for pain. ALLERGIES: Please see below. PHYSICAL EXAMINATION ON DISCHARGE: VITAL SIGNS: Please see below. HENT: Neck is supple with no adenopathy or thyromegaly, he does not currently exhibit diaphoresis, no scleral icterus or jaundice Cardiovascular: Regular rate and rhythm with a normal S1 and S2, no appreciable murmur. Respiratory: Clear to auscultation, no rhonchi, rales, wheezes or cough Abdominal: Decreased distention, no tenderness to incision sites, endoscopic sites are dressed with no bleeding or induration, KISHOR drain is out, bowel tones are present Extremities: No peripheral edema or lesions. Neuro: No focal neuromotor or sensory deficits LABORATORY DATA: Please see below. IMAGING: PROGNOSIS: ACTIVITY: [As tolerated]. DIET: [Consistent carbohydrate] DISCHARGE PLAN: [The patient is stable for discharge to home. [facility] Surgical follow-up will be within 5 days to one week with Dr. Cain.] DISPOSITION: 01 Home, Self-Care. DISCHARGE INSTRUCTIONS: ITEMS TO FOLLOWUP ON ON OUTPATIENT: DISCHARGE CONDITION: [Stable]. TIME SPENT ON DISCHARGE: Greater than [40] minutes. Vital Signs/I&Os Vital Signs Date Time Temp Pulse Resp B/P (MAP) Pulse Ox O2 Delivery O2 Flow Rate FiO2 03/12/19 06:00 97.3 57 18 95 03/11/19 21:20 133/64 03/09/19 21:00 1.0 l I&O- Last 24 Hours up to 6 AM 03/12/19 06:00 Intake Total 1370 ml Output Total 3625 ml Balance -2255 ml Laboratory Data Labs 24H Laboratory Tests 2 03/11/19 17:40: Bedside Glucose (Misc Panel) 83 03/11/19 21:06: Bedside Glucose (Misc Panel) 156H 03/12/19 06:47: Bedside Glucose (Misc Panel) 60L 03/12/19 07:29: Bedside Glucose (Misc Panel) 87 03/12/19 11:35: Bedside Glucose (Misc Panel) 124H FSBS Laboratory Tests Test 03/11/19 17:40 03/11/19 21:06 03/12/19 06:47 03/12/19 07:29 Range/Units Bedside Glucose (Misc Panel) 83 156 60 87 83-110 MG/DL Test 03/12/19 11:35 Range/Units Bedside Glucose (Misc Panel) 124 83-110 MG/DL Microbiology Microbiology 03/03/19 Blood Culture - Final, Complete NO GROWTH AFTER 5 DAYS 03/03/19 Blood Culture - Final, Complete NO GROWTH AFTER 5 DAYS Discharge Medications Scheduled Acarbose (Acarbose) 25 Mg Tab, 25 MG PO BIDWM, (Reported) Amlodipine Besylate (Amlodipine Besylate) 5 Mg Tab, 5 MG PO QHS, (Reported) Aspirin (Aspirin EC) 81 Mg Tab, 81 MG PO DAILY, (Reported) Atenolol (Atenolol) 50 Mg Tab, 50 MG PO QHS, (Reported) Atorvastatin Calcium (Atorvastatin Calcium) 40 Mg Tab, 40 MG PO QHS, (Reported) Calcium Carbonate/Vitamin D3 (Calcium 600-Vit D3 800 Tablet) 1 Tab Tab, 1 TAB PO DAILY, (Reported) Denosumab Injection (Xgeva) 120 Mg/1.7 Ml Inj, 120 MG SC QMONTH, (Reported) Fenofibrate Nanocrystallized (Tricor) 145 Mg Tab, 145 MG PO QHS, (Reported) Folic Acid (Folic Acid) 1 Mg Tab, 1 MG PO QPM, (Reported) Glipizide (Glipizide Xl) 10 Mg Tab, 10 MG PO QAM, (Reported) Gluc Martinez/Chondro Martinez A/Vit C/Mn (Glucosamine Chondroitin Tab) 1 Each Tablet, 1 TAB PO DAILY, (Reported) Loratadine (Allergy Relief) 10 Mg Tab, 10 MG PO QPM, (Reported) Magnesium Oxide (Magnesium) 400 Mg Cap, 400 MG PO QPM, (Reported) Multivitamins (Thera M Plus Tablet) 1 Tab Tab, 1 TAB PO DAILY, (Reported) Omeprazole (Omeprazole) 20 Mg Capsule.dr, 20 MG PO QAM, (Reported) Pantoprazole Sodium (Protonix IV) 40 Mg Vial, 40 MG IV ASDIRECTED, (Reported) RECEIVED AT [facility] Rivaroxaban (Xarelto) 15 Mg Tablet, 15 MG PO QPM, (Reported) PATIENT STATES HE IS TAKING 15MG Sitagliptin Phosphate (Januvia) 100 Mg Tablet, 100 MG PO DAILY, (Reported) Tamoxifen Citrate (Tamoxifen Citrate) 20 Mg Tab, 20 MG PO DAILY Umeclidinium Brm/Vilanterol Tr (Anoro Ellipta 62.5-25 Mcg INH) 1 Aer Aer, 1 PUFF PO QAM, (Reported) Scheduled PRN Albuterol Sulfate (Ventolin Hfa) 18 Gm Hfa.aer.ad, 2 PUFF INH Q6H PRN for SHORTNESS OF BREATH, (Reported) Nitroglycerin (Nitroglycerin) 0.4 Mg Sub, 0.4 MG SL NITRO PRN for CHEST PAIN, (Reported) Oxycodone HCl/Acetaminophen (Oxycodone-Acetaminophen 5-325) 1 Each Tablet, 1 TAB PO Q8H PRN for PAIN, (Reported) Allergies Coded Allergies: No Known Allergies (Unverified , 04/19/18) MONICA KIMBALL MD Mar 12, 2019 17:34
== END 2019-03-12 13:57 | disposition home or self-care (01) | DRG 419 ==
LOC: M MSPAV 17:42
PROVIDERS: ADMIT Family Medicine; ATTEND Internal Medicine
PROC: BF00YZZ Plain Radiography of Bile Ducts using Other Contrast (ICD-10-PCS; 2019-03-06)
PROC: 0FT44ZZ Resection of Gallbladder, Percutaneous Endoscopic Approach (ICD-10-PCS; principal; 2019-03-06 12:45)
DX: K80.00 Calculus of gallbladder with acute cholecystitis without obstruction (principal); I12.9 Hypertensive chronic kidney disease with stage 1 through stage 4 chronic kidney disease, or unspecified chronic kidney disease; E11.22 Type 2 diabetes mellitus with diabetic chronic kidney disease; K21.9 Gastro-esophageal reflux disease without esophagitis; D64.9 Anemia, unspecified; I83.90 Asymptomatic varicose veins of unspecified lower extremity; J44.9 Chronic obstructive pulmonary disease, unspecified; E78.5 Hyperlipidemia, unspecified; E11.649 Type 2 diabetes mellitus with hypoglycemia without coma; Z85.3 Personal history of malignant neoplasm of breast; Z85.51 Personal history of malignant neoplasm of bladder; Z86.718 Personal history of other venous thrombosis and embolism; Z79.01 Long term (current) use of anticoagulants; Z90.12 Acquired absence of left breast and nipple; Z95.1 Presence of aortocoronary bypass graft; Z90.49 Acquired absence of other specified parts of digestive tract; Z79.899 Other long term (current) drug therapy; Z79.84 Long term (current) use of oral hypoglycemic drugs; Z87.891 Personal history of nicotine dependence; N18.9 Chronic kidney disease, unspecified

== ENCOUNTER → 2019-04-14 | Outpatient (CLI) | payer MEDICARE, OTHER ==
[~2019-04-14] MED LIST changes: +ANAS1TAB2 PO; +CEFT1INJ5 IV; +GLUCTAB6 PO; +JANU100T PO; +OMEP-218 PO; +OXYC1TAB23 PO; +PROT40IN4 IV; +XARE15TA PO
--- NOTE | 2019-04-14 15:26 | REP ---
Whole body radionuclide bone scan: History: Breast carcinoma. Comparison bone scan: November 27, 2012. Technique: 22.0 mCi technetium 99m MDP is injected and standard whole body bone scan imaging was acquired. Scintigraphic findings: There are innumerable foci of increased uptake throughout the visualized axial skeleton consistent with widespread skeletal metastatic disease. This is a change from the comparison bone scan. There is uptake in bilateral kidneys and in the urinary bladder. Impression: Widespread skeletal metastatic disease pattern. Electronically Signed by Amrit Coats MD 04/14/2019 06:37 P
== END ==
LOC: M RAD 09:23
PROVIDERS: ATTEND Internal Medicine Hematology & Oncology
DX: C79.51 Secondary malignant neoplasm of bone (principal); C50.922 Malignant neoplasm of unspecified site of left male breast
CPT/HCPCS: 78306; A9503